=== PATIENT | female | born 1990 | race African-American/Black ===

== ENCOUNTER 2022-06-19 04:24 | Emergency (ER) | payer BC, MEDICAID ==
[~2022-06-19] VITALS: Ht 180.3 cm; Wt 128.6 kg
[2022-06-19 05:21] LABS: Basophils # (auto) 0 10 ^3/uL (0-0.2); Basophils % (auto) 0.6 % (0.0-2.0); Eosinophils # (auto) 0 10 ^3/uL (0-0.8); Hematocrit 39.7 % (36.0-46.0); Hemoglobin 13.2 g/dL (12.2-16.2); Lymphocytes # (auto) 1.7 10 ^3/uL (0.4-5.4); Lymphocytes % (auto) 47.2 % (10.0-50.0); Mean Corpuscular Hgb Conc. 33.4 g/dL (32.0-36.0); Mean Corpuscular Volume 89.9 fL (80.0-100.0); Monocytes # (auto) 0.2 10 ^3/uL (0-1.3); Monocytes % (auto) 6.4 % (0.0-12.0); Neutrophils # (auto) 1.6 10 ^3/uL (1.6-8.6); Neutrophils % (auto) 44.8 % (37.0-80.0); Nucleated Red Blood Cells % 0.1 %; Red Blood Cells 4.41 10^6/uL (4.0-5.20); Red Cell Distribution Width 13.2 % (11.8-14.3); White Blood Cell 3.6 10^3/uL (4.4-10.8)
[2022-06-19 05:34] LABS: Albumin 3.9 g/dL (3.4-5.0); BUN/Creatinine Ratio 22.6; Calcium 8.9 mg/dL (8.5-10.1)
[2022-06-19 05:48] LABS: Bilirubin, Total 0.8 mg/dL (0.2-1.0); Total Protein 7.3 g/dL (6.4-8.2)
[2022-06-19] MEDS ORDERED: ASPirin 81 mg TAB PO ONE (08:00)
[2022-06-19] MEDS ORDERED: SODIUM CHLORIDE 0.9% 1,000 ML IVB ONE (08:00)
[2022-06-19 13:00] VITALS: BP 121/68
== END 2022-06-19 13:08 | disposition home or self-care (01) ==
LOC: ER 04:24
DX: R07.89 Other chest pain (principal); K52.9 Noninfective gastroenteritis and colitis, unspecified; F17.290 Nicotine dependence, other tobacco product, uncomplicated; J45.909 Unspecified asthma, uncomplicated
CPT/HCPCS: 36415; 71045; 80053; 83880; 84484; 85025; 93005

== ENCOUNTER 2022-07-15 16:40 | Emergency (ER) | payer BC, MEDICAID ==
[~2022-07-15] VITALS: Ht 180.3 cm; Wt 113.6 kg
[2022-07-15 18:59] LABS: Basophils # (auto) 0 10 ^3/uL (0-0.2); Basophils % (auto) 0.6 % (0.0-2.0); Eosinophils # (auto) 0.1 10 ^3/uL (0-0.8); Eosinophils % (auto) 1.3 % (0.0-7.0); Hematocrit 42.5 % (36.0-46.0); Hemoglobin 13.8 g/dL (12.2-16.2); Lymphocytes # (auto) 2.2 10 ^3/uL (0.4-5.4); Lymphocytes % (auto) 53.3 % (10.0-50.0); Mean Corpuscular Hemoglobin 29.2 pg (28.0-32.0); Mean Corpuscular Hgb Conc. 32.4 g/dL (32.0-36.0); Mean Corpuscular Volume 90.3 fL (80.0-100.0); Monocytes # (auto) 0.2 10 ^3/uL (0-1.3); Monocytes % (auto) 4.7 % (0.0-12.0); Neutrophils # (auto) 1.7 10 ^3/uL (1.6-8.6); Neutrophils % (auto) 40.1 % (37.0-80.0); Nucleated Red Blood Cells % 0.3 %; Red Blood Cells 4.71 10^6/uL (4.0-5.20); Red Cell Distribution Width 13.3 % (11.8-14.3); White Blood Cell 4.2 10^3/uL (4.4-10.8)
[2022-07-15 19:18] LABS: Albumin 3.9 g/dL (3.4-5.0); BUN/Creatinine Ratio 24.7; Calcium 8.8 mg/dL (8.5-10.1); Potassium 4.2 mmol/L (3.5-5.1)
[2022-07-15 19:20] LABS: Bilirubin, Total 0.3 mg/dL (0.2-1.0); Total Protein 7.7 g/dL (6.4-8.2)
[2022-07-15] MEDS ORDERED: ONDANSETRON ODT 4 MG TAB PO ONE (22:45)
[2022-07-16] MEDS ORDERED: HYDROcodone-ACET 5/325MG TAB PO ONE
[2022-07-16 00:48] VITALS: BP 133/88
== END 2022-07-16 00:48 | disposition home or self-care (01) ==
LOC: EDBD 16:40 → ER 16:40 → EDUNIT# 16:40 → ER 07-16 00:48
DX: R07.89 Other chest pain (principal); Z88.0 Allergy status to penicillin; Z88.6 Allergy status to analgesic agent; Z91.041 Radiographic dye allergy status; J45.909 Unspecified asthma, uncomplicated
CPT/HCPCS: 36415; 80053; 84484; 85025; 93005; 99285; Q0162

== ENCOUNTER 2024-06-06 19:52 | Emergency (ER) | payer BC, MEDICAID ==
[~2024-06-06] VITALS: Ht 180.3 cm; Wt 127.3 kg
[2024-06-06] MEDS: ACETAMINOPHEN 500 MG TAB PO ONE (20:24)
[2024-06-06 20:26] LABS: Basophils # (auto) 0 10 ^3/uL (0-0.2); Basophils % (auto) 0.6 % (0.0-2.0); Eosinophils # (auto) 0 10 ^3/uL (0-0.8); Eosinophils % (auto) 0.5 % (0.0-7.0); Hematocrit 38.1 % (36.0-46.0); Hemoglobin 13.2 g/dL (12.2-16.2); Lymphocytes # (auto) 0.9 10 ^3/uL (0.4-5.4); Lymphocytes % (auto) 20.1 % (10.0-50.0); Mean Corpuscular Hemoglobin 31.2 pg (28.0-32.0); Mean Corpuscular Hgb Conc. 34.5 g/dL (32.0-36.0); Mean Corpuscular Volume 90.3 fL (80.0-100.0); Monocytes # (auto) 0.4 10 ^3/uL (0-1.3); Monocytes % (auto) 9.1 % (0.0-12.0); Neutrophils # (auto) 3.2 10 ^3/uL (1.6-8.6); Neutrophils % (auto) 69.7 % (37.0-80.0); Nucleated Red Blood Cells % 0.1 %; Platelet Count (auto) 218 10^3/uL (140-450); Red Blood Cells 4.22 10^6/uL (4.0-5.20); Red Cell Distribution Width 13.7 % (11.8-14.3); White Blood Cell 4.6 10^3/uL (4.4-10.8)
[2024-06-06 20:40] LABS: Alanine Aminotransferase 71 U/L (7-40); Albumin 4.3 g/dL (3.2-4.8); Alkaline Phosphatase 63 U/L (46-116); Anion Gap 7 (5-15); Aspartate Aminotransferase 55 U/L (13-40); BUN/Creatinine Ratio 17.8 (10.0-20.0); Bilirubin, Total 0.5 mg/dL (0.2-1.0); Blood Urea Nitrogen 16 mg/dL (9-23); Calcium 9.5 mg/dL (8.7-10.4); Carbon Dioxide 21 mmol/L (20-30); Chloride 109 mmol/L (98-107); Glucose 97 mg/dL (74-106); Potassium 4.3 mmol/L (3.5-5.1); Sodium 137 mmol/L (136-145); Total Protein 7.1 g/dL (5.7-8.2)
[2024-06-06 20:43] LABS: Rapid Strep A Screen-Throat Negative
[2024-06-06 20:47] LABS: INR 0.97 (0.9-1.15); Partial Thromboplastin Time 24.5 SEC (24.5-34.5); Prothrombin Time 10.3 sec (9.3-11.8)
[2024-06-06 20:57] LABS: COVID19 ANTIGEN SOFIA FIA NEGATIVE (NEGATIVE)
[2024-06-06 21:00] LABS: Rapid Influenza A Negative (Negative); Rapid Influenza B Negative (Negative)
[2024-06-06] MEDS ORDERED: PRED20TA2 PO (21:52)
[2024-06-06] MEDS ORDERED: AZIT500T66 PO (21:52)
[2024-06-06 22:36] LABS: Urine Bacteria FEW /hpf (None Seen); Urine Blood Negative /uL (Negative); Urine Clarity Ex.Turbid (Clear); Urine Color Light-Orange (Yellow); Urine Mucus FEW (None Seen); Urine Protein, UAD TRACE (Negative); Urine Specific Gravity 1.029 (1.001-1.035); Urine Urobilinogen Normal (Negative); Urine WBC 1 /hpf (0 - 5)
[2024-06-06] MEDS: ALBUTEROL SULF 2.5 MG/0.5ML(0.5%) NEB SOLN NEB ONE (23:46)
[2024-06-06] MEDS: IPRATROPIUM BROM 0.5 MG/2.5ML INH SOL NEB ONE (23:46)
[2024-06-06 23:57] VITALS: BP 120/73; PULSE 91; TEMP 98.5
[2024-06-07] VITALS: RESP 20; O2SAT 98
[2024-06-07] MEDS: DexAMETHasone SOD PHOS 10MG/1ML VIAL INJ IM ONE (00:05)
== END 2024-06-07 00:16 | disposition home or self-care (01) ==
LOC: ER 19:52
DX: J18.9 Pneumonia, unspecified organism (principal); J45.909 Unspecified asthma, uncomplicated; F12.90 Cannabis use, unspecified, uncomplicated; Z88.0 Allergy status to penicillin; Z88.6 Allergy status to analgesic agent; Z88.8 Allergy status to other drugs, medicaments and biological substances; Z20.822 Contact with and (suspected) exposure to COVID-19
CPT/HCPCS: 36415; 71045; 80053; 81001; 83880; 84484; 85025; 85610; 85730; 87070; 87426; 87804; 87880; 93005; 94640; 96372; 99285; J1100

== ENCOUNTER 2024-08-02 05:49 | Inpatient (IN) | payer MEDICAID ==
[~2024-08-02] VITALS: Ht 180.3 cm; Wt 143.5 kg
[~2024-08-02 05:49] MED LIST: AZIT500T66 PO; PRED20TA2 PO
[2024-08-02 06:21] LABS: Basophils # (auto) 0 10 ^3/uL (0-0.2); Basophils % (auto) 0.7 % (0.0-2.0); Eosinophils # (auto) 0.1 10 ^3/uL (0-0.8); Eosinophils % (auto) 1.4 % (0.0-7.0); Hemoglobin 13.4 g/dL (12.2-16.2); Lymphocytes # (auto) 2.1 10 ^3/uL (0.4-5.4); Lymphocytes % (auto) 32.1 % (10.0-50.0); Mean Corpuscular Hemoglobin 31.4 pg (28.0-32.0); Mean Corpuscular Hgb Conc. 34.3 g/dL (32.0-36.0); Mean Corpuscular Volume 91.6 fL (80.0-100.0); Monocytes # (auto) 0.4 10 ^3/uL (0-1.3); Monocytes % (auto) 5.9 % (0.0-12.0); Neutrophils # (auto) 3.9 10 ^3/uL (1.6-8.6); Neutrophils % (auto) 59.9 % (37.0-80.0); Platelet Count (auto) 235 10^3/uL (140-450); Red Blood Cells 4.25 10^6/uL (4.0-5.20); Red Cell Distribution Width 13.9 % (11.8-14.3); White Blood Cell 6.5 10^3/uL (4.4-10.8)
[2024-08-02 06:34] LABS: INR 0.97 (0.9-1.15); Partial Thromboplastin Time 24.7 SEC (24.5-34.5); Prothrombin Time 10.3 sec (9.3-11.8)
[2024-08-02 06:36] LABS: Alanine Aminotransferase 39 U/L (7-40); Albumin 4.4 g/dL (3.2-4.8); Alkaline Phosphatase 67 U/L (46-116); Anion Gap 4 (5-15); Aspartate Aminotransferase 23 U/L (13-40); BUN/Creatinine Ratio 15.2 (10.0-20.0); Blood Urea Nitrogen 12 mg/dL (9-23); Calcium 9.6 mg/dL (8.7-10.4); Carbon Dioxide 24 mmol/L (20-31); Chloride 111 mmol/L (98-107); Glucose 93 mg/dL (74-106); Magnesium 2.2 mg/dL (1.6-2.6); Potassium 4.1 mmol/L (3.5-5.1); Sodium 139 mmol/L (136-145)
[2024-08-02 06:37] LABS: Bilirubin, Total 0.5 mg/dL (0.2-1.0); Total Protein 7.3 g/dL (5.7-8.2)
[2024-08-02] MEDS: FAMOTIDINE (10MG/ML) 2ML VL IV ONE (07:28)
[2024-08-02] MEDS: SODIUM CHLORIDE 0.9% 1,000 ML IV ONE (07:28)
[2024-08-02] MEDS: ONDANSETRON HCL 4 MG/2 ML VIAL IV ONE (07:28)
[2024-08-02] MEDS: MORPHINE SULFATE 4 MG/ML SYR/VIAL IV ONE (07:33)
[2024-08-02 07:35] VITALS: PULSE 77; RESP 18; O2SAT 98
[2024-08-02] MEDS ORDERED: ACETAMINOPHEN 325 MG TAB PO PRN (10:45)
[2024-08-02 12:20] LABS: Erythrocyte Sedimentation Rate 23 mm/hr (0-20)
[2024-08-02] MEDS: HYDROcodone-ACET 5/325MG TAB PO PRN (16:49)
[2024-08-02] MEDS: HYDROmorphone HCL 2 MG/ML VL/or syr IV PRN (19:15)
[2024-08-02] MEDS ORDERED: MULT-1018 PO (21:49)
[2024-08-02] MEDS ORDERED: TOPI25TA84 PO (21:49)
[2024-08-02] MEDS ORDERED: ALBUAER3 IN (21:49)
[2024-08-02] MEDS ORDERED: LEVE500T40 PO (21:49)
[2024-08-02 23:15] VITALS: PULSE 80; RESP 16; O2SAT 96
[2024-08-03] MEDS: ONDANSETRON HCL 4 MG/2 ML VIAL IV PRN ×2 (00:26→18:23)
[2024-08-03 04:30] LABS: Alanine Aminotransferase 27 U/L (7-40); Albumin 4.2 g/dL (3.2-4.8); Alkaline Phosphatase 58 U/L (46-116); Anion Gap 5 (5-15); Aspartate Aminotransferase 14 U/L (13-40); BUN/Creatinine Ratio 12.7 (10.0-20.0); Bilirubin, Total 0.9 mg/dL (0.2-1.0); Blood Urea Nitrogen 8 mg/dL (9-23); Calcium 9.3 mg/dL (8.7-10.4); Carbon Dioxide 23 mmol/L (20-31); Chloride 111 mmol/L (98-107); Glucose 113 mg/dL (74-106); Potassium 3.9 mmol/L (3.5-5.1); Sodium 139 mmol/L (136-145); Total Protein 6.9 g/dL (5.7-8.2)
[2024-08-03 04:32] LABS: Basophils # (auto) 0 10 ^3/uL (0-0.2); Basophils % (auto) 0.3 % (0.0-2.0); Eosinophils # (auto) 0 10 ^3/uL (0-0.8); Eosinophils % (auto) 0.4 % (0.0-7.0); Hematocrit 38.9 % (36.0-46.0); Hemoglobin 13.2 g/dL (12.2-16.2); Lymphocytes # (auto) 1.6 10 ^3/uL (0.4-5.4); Lymphocytes % (auto) 29.6 % (10.0-50.0); Mean Corpuscular Hemoglobin 31.4 pg (28.0-32.0); Mean Corpuscular Volume 92.3 fL (80.0-100.0); Monocytes # (auto) 0.3 10 ^3/uL (0-1.3); Monocytes % (auto) 4.8 % (0.0-12.0); Neutrophils # (auto) 3.5 10 ^3/uL (1.6-8.6); Neutrophils % (auto) 64.9 % (37.0-80.0); Nucleated Red Blood Cells % 0.1 %; Platelet Count (auto) 203 10^3/uL (140-450); Red Blood Cells 4.22 10^6/uL (4.0-5.20); Red Cell Distribution Width 13.5 % (11.8-14.3); White Blood Cell 5.4 10^3/uL (4.4-10.8)
[2024-08-03 07:36] VITALS: PULSE 90; RESP 17
[2024-08-03] MEDS: ENOXAPARIN SOD 40 MG/0.4 ML SYRINGE SC SCH (09:56)
[2024-08-03 13:30] VITALS: O2SAT 97
[2024-08-03] MEDS: GABAPENTIN 100 MG CAP PO SCH (14:32)
[2024-08-03 14:36] LABS: Basophils # (auto) 0 10 ^3/uL (0-0.2); Basophils % (auto) 0.5 % (0.0-2.0); Eosinophils # (auto) 0.1 10 ^3/uL (0-0.8); Eosinophils % (auto) 1.3 % (0.0-7.0); Hematocrit 38.1 % (36.0-46.0); Lymphocytes # (auto) 2.1 10 ^3/uL (0.4-5.4); Mean Corpuscular Hemoglobin 31.4 pg (28.0-32.0); Mean Corpuscular Hgb Conc. 34.2 g/dL (32.0-36.0); Mean Corpuscular Volume 91.8 fL (80.0-100.0); Monocytes # (auto) 0.3 10 ^3/uL (0-1.3); Monocytes % (auto) 6.7 % (0.0-12.0); Neutrophils # (auto) 2.3 10 ^3/uL (1.6-8.6); Neutrophils % (auto) 48.5 % (37.0-80.0); Platelet Count (auto) 216 10^3/uL (140-450); Red Blood Cells 4.15 10^6/uL (4.0-5.20); Red Cell Distribution Width 13.6 % (11.8-14.3); White Blood Cell 4.8 10^3/uL (4.4-10.8)
[2024-08-03 14:57] LABS: Alanine Aminotransferase 28 U/L (7-40); Albumin 4.1 g/dL (3.2-4.8); Alkaline Phosphatase 60 U/L (46-116); Anion Gap 4 (5-15); Aspartate Aminotransferase 19 U/L (13-40); BUN/Creatinine Ratio 12.7 (10.0-20.0); Blood Urea Nitrogen 10 mg/dL (9-23); Calcium 9.2 mg/dL (8.7-10.4); Carbon Dioxide 27 mmol/L (20-31); Chloride 108 mmol/L (98-107); Creatine Kinase IFCC 161 U/L (34-145); Glucose 85 mg/dL (74-106); Potassium 3.6 mmol/L (3.5-5.1); Sodium 139 mmol/L (136-145)
[2024-08-03 14:58] LABS: Bilirubin, Total 0.8 mg/dL (0.2-1.0); Total Protein 6.7 g/dL (5.7-8.2)
[2024-08-03 21:49] VITALS: BP 138/86; PULSE 77; RESP 18; TEMP 98.4; O2SAT 98
[2024-08-03 22:12] LABS: Amphetamine Screen, Urine Neg (NEGATIVE); Barbiturate Scree,Urine Neg (NEGATIVE); Benzodiazephine Screen, Urine Neg (NEGATIVE); Cannabinoid Screen, Urine Pos (NEGATIVE); Cocaine Screen, Urine Neg (NEGATIVE); Opiate Scree,Urine Neg (NEGATIVE); Phencyclidine Screen, Urine Neg (NEGATIVE)
[2024-08-03] MEDS: TOPIRAMATE 25 MG TAB PO SCH (22:26)
[2024-08-03] MEDS: levETIRAcetam 500 MG TAB PO SCH (22:26)
[2024-08-04] VITALS (7 sets, daily range): BP systolic 112–142; BP diastolic 47–91; PULSE 64–96; RESP 15–18; TEMP 98–98.9; O2SAT 94–99
[2024-08-04] MEDS: DOCUSATE SOD 100 MG CAP PO PRN (05:11)
[2024-08-04 07:14] LABS: Basophils # (auto) 0 10 ^3/uL (0-0.2); Basophils % (auto) 0.6 % (0.0-2.0); Eosinophils # (auto) 0.1 10 ^3/uL (0-0.8); Hemoglobin 13.6 g/dL (12.2-16.2); Lymphocytes # (auto) 1.4 10 ^3/uL (0.4-5.4); Lymphocytes % (auto) 33.2 % (10.0-50.0); Mean Corpuscular Hemoglobin 31.1 pg (28.0-32.0); Mean Corpuscular Volume 91.6 fL (80.0-100.0); Monocytes # (auto) 0.3 10 ^3/uL (0-1.3); Monocytes % (auto) 6.6 % (0.0-12.0); Neutrophils # (auto) 2.3 10 ^3/uL (1.6-8.6); Neutrophils % (auto) 57.6 % (37.0-80.0); Nucleated Red Blood Cells % 0.1 %; Platelet Count (auto) 242 10^3/uL (140-450); Red Blood Cells 4.36 10^6/uL (4.0-5.20); Red Cell Distribution Width 13.1 % (11.8-14.3); White Blood Cell 4.1 10^3/uL (4.4-10.8)
[2024-08-04 07:38] LABS: Alanine Aminotransferase 28 U/L (7-40); Albumin 4.2 g/dL (3.2-4.8); Alkaline Phosphatase 58 U/L (46-116); Anion Gap 7 (5-15); Aspartate Aminotransferase 20 U/L (13-40); BUN/Creatinine Ratio 10.8 (10.0-20.0); Blood Urea Nitrogen 9 mg/dL (9-23); Calcium 9.6 mg/dL (8.7-10.4); Carbon Dioxide 25 mmol/L (20-31); Chloride 108 mmol/L (98-107); Glucose 71 mg/dL (74-106); Potassium 3.8 mmol/L (3.5-5.1); Sodium 140 mmol/L (136-145)
[2024-08-04 07:39] LABS: Bilirubin, Total 0.9 mg/dL (0.2-1.0); Total Protein 7.2 g/dL (5.7-8.2)
[2024-08-04] MEDS: MECLIZINE HCL 25 MG TAB PO PRN (16:52)
[2024-08-05] VITALS (8 sets, daily range): BP systolic 112–123; BP diastolic 36–77; PULSE 61–96; RESP 16–20; TEMP 97.8–98.4; O2SAT 94–100
[2024-08-05 08:13] LABS: Basophils # (auto) 0 10 ^3/uL (0-0.2); Basophils % (auto) 0.5 % (0.0-2.0); Eosinophils # (auto) 0.1 10 ^3/uL (0-0.8); Eosinophils % (auto) 1.9 % (0.0-7.0); Hematocrit 42.5 % (36.0-46.0); Hemoglobin 14.3 g/dL (12.2-16.2); Lymphocytes # (auto) 1.5 10 ^3/uL (0.4-5.4); Lymphocytes % (auto) 39.5 % (10.0-50.0); Mean Corpuscular Hemoglobin 30.7 pg (28.0-32.0); Mean Corpuscular Hgb Conc. 33.6 g/dL (32.0-36.0); Mean Corpuscular Volume 91.5 fL (80.0-100.0); Monocytes # (auto) 0.2 10 ^3/uL (0-1.3); Monocytes % (auto) 4.5 % (0.0-12.0); Neutrophils # (auto) 2.1 10 ^3/uL (1.6-8.6); Neutrophils % (auto) 53.6 % (37.0-80.0); Nucleated Red Blood Cells % 0.1 %; Platelet Count (auto) 279 10^3/uL (140-450); Red Blood Cells 4.64 10^6/uL (4.0-5.20); Red Cell Distribution Width 12.9 % (11.8-14.3); White Blood Cell 3.8 10^3/uL (4.4-10.8)
[2024-08-05 08:40] LABS: Alanine Aminotransferase 25 U/L (7-40); Albumin 4.3 g/dL (3.2-4.8); Alkaline Phosphatase 59 U/L (46-116); Anion Gap 8 (5-15); Aspartate Aminotransferase 22 U/L (13-40); BUN/Creatinine Ratio 11.1 (10.0-20.0); Bilirubin, Total 0.8 mg/dL (0.2-1.0); Blood Urea Nitrogen 10 mg/dL (9-23); Calcium 9.7 mg/dL (8.7-10.4); Carbon Dioxide 24 mmol/L (20-31); Chloride 108 mmol/L (98-107); Glucose 92 mg/dL (74-106); Potassium 3.5 mmol/L (3.5-5.1); Sodium 140 mmol/L (136-145); Total Protein 7.4 g/dL (5.7-8.2)
[2024-08-05] MEDS: MAALOX PLUS or MAALOX 30 ML PO ONE (10:43)
[2024-08-05] MEDS: ONDANSETRON HCL 4 MG/2 ML VIAL IV ONE (10:44)
[2024-08-05] MEDS: FAMOTIDINE (10MG/ML) 2ML VL IV ONE (10:45)
[2024-08-05] MEDS: HALOPERIDOL LACTATE 5 MG/ML INJ VIAL IM ONE (14:47)
[2024-08-05] MEDS: MAALOX PLUS or MAALOX 30 ML PO PRN (21:40)
[2024-08-06 01:00] VITALS: BP 131/87; PULSE 82; RESP 17; TEMP 98; O2SAT 99
[2024-08-06 05:00] VITALS: BP 102/60; PULSE 92; RESP 18; TEMP 97.8; O2SAT 96
[2024-08-06 06:08] LABS: Basophils # (auto) 0 10 ^3/uL (0-0.2); Basophils % (auto) 0.7 % (0.0-2.0); Eosinophils # (auto) 0.1 10 ^3/uL (0-0.8); Eosinophils % (auto) 1.8 % (0.0-7.0); Hematocrit 40.7 % (36.0-46.0); Lymphocytes # (auto) 1.6 10 ^3/uL (0.4-5.4); Lymphocytes % (auto) 35.4 % (10.0-50.0); Mean Corpuscular Hemoglobin 31.3 pg (28.0-32.0); Mean Corpuscular Hgb Conc. 34.5 g/dL (32.0-36.0); Mean Corpuscular Volume 90.7 fL (80.0-100.0); Monocytes # (auto) 0.4 10 ^3/uL (0-1.3); Monocytes % (auto) 8.2 % (0.0-12.0); Neutrophils # (auto) 2.4 10 ^3/uL (1.6-8.6); Neutrophils % (auto) 53.9 % (37.0-80.0); Nucleated Red Blood Cells % 0.2 %; Platelet Count (auto) 278 10^3/uL (140-450); Red Blood Cells 4.48 10^6/uL (4.0-5.20); White Blood Cell 4.4 10^3/uL (4.4-10.8)
[2024-08-06 06:31] LABS: Alanine Aminotransferase 22 U/L (7-40); Albumin 4.2 g/dL (3.2-4.8); Alkaline Phosphatase 58 U/L (46-116); Anion Gap 6 (5-15); Aspartate Aminotransferase 18 U/L (13-40); Blood Urea Nitrogen 9 mg/dL (9-23); Calcium 9.6 mg/dL (8.7-10.4); Carbon Dioxide 23 mmol/L (20-31); Chloride 110 mmol/L (98-107); Glucose 83 mg/dL (74-106); Potassium 4.1 mmol/L (3.5-5.1); Sodium 139 mmol/L (136-145)
[2024-08-06 06:32] LABS: Bilirubin, Total 0.8 mg/dL (0.2-1.0); Total Protein 7.2 g/dL (5.7-8.2)
[2024-08-06 08:00] VITALS: PULSE 64; RESP 18; O2SAT 96
[2024-08-06 09:00] VITALS: BP 118/60; PULSE 64; RESP 18; TEMP 98.2; O2SAT 96
[2024-08-06] MEDS ORDERED: ZOFR4T PO (09:19)
[2024-08-06] MEDS ORDERED: FAMO-161 PO (09:19)
[2024-08-06] MEDS ORDERED: GABA-1308 PO (09:19)
[2024-08-06] MEDS ORDERED: MECL25CH85 PO (09:19)
[2024-08-06] MEDS: ONDANSETRON HCL 4 MG/2 ML VIAL IM ONE (09:35)
[2024-08-06 10:46] VITALS: BP 118/60; PULSE 64; RESP 18; TEMP 98.2; O2SAT 96
== END 2024-08-06 11:35 | disposition home or self-care (01) | DRG 50 ==
LOC: ER 05:49 → OVERFLOW 10:44 → WEST WING 10:49
PROVIDERS: ADMIT Internal Medicine; ATTEND Student in an Organized Health Care Education/Training Program
DX: B02.29 Other postherpetic nervous system involvement (principal); R56.9 Unspecified convulsions; E28.2 Polycystic ovarian syndrome; J45.909 Unspecified asthma, uncomplicated; E66.01 Morbid (severe) obesity due to excess calories; Z88.0 Allergy status to penicillin; Z88.8 Allergy status to other drugs, medicaments and biological substances; Z88.6 Allergy status to analgesic agent; Z91.041 Radiographic dye allergy status; Z68.41 Body mass index [BMI] 40.0-44.9, adult; H81.12 Benign paroxysmal vertigo, left ear
CPT/HCPCS: 36415; 71045; 71046; 74176; 76705; 80053; 80307; 82550; 83605; 83735; 83880; 84484; 85025; 85610; 85652; 85730; 86141; 93005; 93971; 96361; 96374; 96375; 99291; G0378; J2405; J3490

== ENCOUNTER 2024-09-29 06:20 | Emergency (ER) | payer MEDICAID ==
[~2024-09-29] VITALS: Ht 180.3 cm; Wt 132.0 kg
[~2024-09-29 06:20] MED LIST changes: +ALBUAER3 IN; -AZIT500T66 PO; +FAMO-161 PO; +GABA-1308 PO; +LEVE500T40 PO; +MECL25CH85 PO; +MULT-1018 PO; -PRED20TA2 PO; +TOPI25TA84 PO; +ZOFR4T PO
[2024-09-29 08:03] VITALS: BP 130/93; PULSE 127; RESP 19; TEMP 98.1; O2SAT 99
--- NOTE | 2024-09-29 08:17 | ED.PDOC ---
Eye-HPI HPI Comments A 33 YEAR OLD FEMALE PRESENTS TO THE ED WITH COMPLAINT OF FLU-LIKE SYMPTOMS. PATIENT STATES SHE HAS BEEN EXPERIENCING A SORE THROAT, LEFT EAR PAIN, BODY ACHES, AND OCCASIONAL FEVER FOR THE PAST 5 DAYS. PATIENT REPORTS SHE HAS TRIED TAKING TYLENOL FOR HER SYMPTOMS WITH MINIMAL IMPROVEMENT. PATIENT DENIES SHORTNESS OF BREATH, CHEST PAIN, ABDOMINAL PAIN, NAUSEA, VOMITING, HEADACHE, OR OTHER COMPLAINTS. NO OTHER SYMPTOMS OR MODIFYING FACTORS AT THIS TIME. PATIENT IS ALERT, ORIENTED X 4, AND HAS STEADY GAIT. Chief Complaint: Flu like Time Seen by MD: 07:29 Primary Care Provider: UNKNOWN Reviewed Notes: Nurses Notes, Medications, Allergies Allergies: Coded Allergies: Ibuprofen (Verified Allergy, Severe, 07/15/22) Iodine (Verified Allergy, Severe, 07/15/22) Penicillins (Verified Allergy, Severe, 07/15/22) Aspirin (Verified Allergy, Unknown, 07/15/22) Uncoded Allergies: oranges (Allergy, Unknown, 08/04/24) Home Meds Active Scripts Acetaminophen (Tylenol Extra Strength Fo) 500 Mg Tab, 650 MG PO TID, #30 TAB Prov:ANNA AGUILAR 09/29/24 Azithromycin (Azithromycin) 500 Mg Tab, 1 TAB PO DAILY, #5 TAB Prov:ANNA AGUILAR 09/29/24 Gabapentin (Gabapentin) 100 Mg Cap, 1 CAP PO TID for 30 Days, #90 CAP 2 Refills Prov:GEORGES DON MD 08/06/24 Meclizine HCl (Antivert) 25 Mg Chw, 25 MG PO DAILY PRN for 30 Days, #30 TAB.CHEW Prov:GEORGES DON MD 08/06/24 Ondansetron Odt 4MG Tab (ZOFRAN PO) 4 Mg Tb, 4 MG PO BIDPRN PRN for 30 Days, #60 TAB ODT TAB-DISSOLVE IN MOUTH, THEN SWALLOW Prov:GEORGES DON MD 08/06/24 Famotidine (Pepcid AC) 20 Mg Tab, 20 MG PO DAILY PRN for 30 Days, #30 TAB Prov:GEORGES DON MD 08/06/24 Reported Medications Topiramate (Topiramate) 25 Mg Tab, 1 TAB PO BID, #60 TAB 08/02/24 Levetiracetam (Keppra) 500 Mg Tab, 1 TAB PO BID, #180 TAB 3 Refills 08/02/24 Multiple Vitamin (Multivitamins) Tab, 1 TAB PO DAILY, #90 TAB 3 Refills 08/02/24 Albuterol Sulfate (VENTOLIN MDI) 90 Mcg Ih, 90 MCG IN, INH 08/02/24 Information Source: Patient Mode of Arrival: Ambulatory Timing: Days Duration: Since onset, Days Prehospital treatment: None Quality: Pain, Red Lids: Normal Conjunctiva: Normal Cornea: Normal Pupils: Normal EOM: Normal Fundus: Normal Slit lamp exam: Normal Anterior chamber: Normal Mouth Location: Pharynx Mouth: Normal ENT Ear Exam: Normal, Red, Bulging, Normal Nose: Normal Sinuses: Normal Oropharynx: Tonsillar hypertrophy, Red Onset: Spontaneous Throat Exposed to: None History of: None Last Tetanus: Unknown Modifying factors: Nothing Associated signs and symptoms: Fever, Nasal Symptoms, Sore Throat, Ear Pain Past Medical History PAST MEDICAL HISTORY: Anemia, Asthma, Seizures Surgical History: Denies all surgeries LICENSED ELECTRICIAN History: No Pertinent LICENSED ELECTRICIAN History, Ovarian Cysts Family History Family History: Reviewed,noncontributory to illness Social History Smoker: Non-Smoker, Other Alcohol: Denies ETOH Use Drugs: Marijuana Lives In: Home Constitutional: reports: fever; denies: chills, diaphoresis, fatigue, malaise, sweats, weakness, others EENTM: reports: nose congestion, throat pain, throat swelling; denies: blurred vision, double vision, ear bleeding, ear discharge, ear drainage, ear pain, ear ringing, eye pain, eye redness, hearing loss, mouth pain, mouth swelling, nasal discharge, nose bleeding, nose pain, photophobia, tearing, voice changes, others Respiratory: reports: cough; denies: hemoptysis, orthopnea, SOB at rest, shortness of breath, SOB with excertion, stridor, wheezing, others Cardiovascular: denies: chest pain, dizzy spells, diaphoresis, Dyspnea on exertion, edema, irregular heart beat, left arm pain, lightheadedness, palpitations, PND, syncope, others Gastrointestinal: denies: abdomen distended, abdominal pain, blood streaked bowels, constipated, diarrhea, dysphagia, difficulty swallowing, hematemesis, melena, nausea, poor appetite, poor fluid intake, rectal bleeding, rectal pain, vomiting, others Genitourinary: denies: abnormal vagina bleeding, burning, dyspareunia, dysuria, flank pain, frequency, hematuria, incontinence, pain, , vagina discharge, urgency, others Neurological: denies: dizziness, fainting, headache, left sided numbness, left sided weakness, numbness, paresthesia, pre-existing deficit, right sided numbness, right sided weakness, seizure, speech problems, tingling, tremors, weakness, others Musculoskeletal: reports: muscle pain; denies: back pain, gout, joint pain, j oint swelling, muscle stiffness, neck pain, others Integumetry: denies: bruises, change in color, change in hair/nails, dryness, laceration, lesions, lumps, rash, wounds, others Allergic/Immunocompromised: denies: Difficulty Healing, Frequent Infections, Hives, Itching, others Hematologic/Lymphatic: denies: anemia, blood clots, easy bleeding, easy bruising, swollen glands, others Endocrine: denies: excessive hunger, excessive sweating, excessive thirst, excessive urination, flushing, intolerance to cold, intolerance to heat, unexplained weight gain, unexplained weight loss, others Psychiatric: denies: anxiety, bipolar disorder, depression, hopeless, panic disorder, schizophrenia, sleepless, suicidal, others All Other Systems: Reviewed and Negative Physical Exam General Appearance: No Apparent Distress, Obese HEENT: PERRL/EOMI, Pharyngeal Erythema (TONSILLAR SWELLING, NO EXUDATES. ), TM Abnormal (L) (ERYTHEMA AND DULL WITH EFFUSION OF LEFT TM. ) Neck: Full Range of Motion, Non-Tender, Normal, Normal Inspection Respiratory: Chest Non-Tender, Lungs Clear, No Accessory Muscle Use, No Respiratory Distress, Normal Breath Sounds Cardiovascular: No Edema, No JVD, No Murmur, No Gallop, Normal Peripheral Pulses, Regular Rate/Rhythm Breast Exam: Deferred Gastrointestinal: No Organomegaly, Non Tender, No Pulsatile Mass, Normal Bowel Sounds, Soft Genitalia: Deferred Pelvic: Deferred Rectal: Deferred Extremities: No calf tenderness, Normal capillary refill, Normal inspection, Normal range of motion, Non-tender, No pedal edema Musculoskeletal : Apperance: Normal Neurologic: Alert, small parts assembler II-XII nml as Tested, No Motor Deficits, Normal Affect, Normal Mood, No Sensory Deficits Cerebellar Function: Normal Reflexes: Normal Skin: Dry, Normal Color, Warm Peripheral Pulses: 2+ carotid (R), 2+ carotid (L) Lymphatic: No Adenopathy Was a procedure done? Was a procedure done?: No EENT DIFF Eye: N/A Ear: Otitis Media, Pharyngitis, Sinusitis Nose: N/A Mouth: N/A Sore Throat: Pharyngitis, Streptococcal, Viral Pharyngitis, URI X-Ray, Labs, Meds, VS Vital Signs Date Time Temp Pulse Resp B/P (MAP) Pulse Ox O2 Delivery O2 Flow Rate FiO2 09/29/24 08:03 98.1 127 19 130/93 (105) 99 98.1 09/29/24 08:03 127 19 99 Room Air 09/29/24 07:28 98.1 127 19 130/93 (105) 99 Current Medications Medications (Trade) Dose Ordered Sig/Louise Route Start Time Stop Time Status Last Admin Ceftriaxone Sodium (Rocephin) 1,000 mg ONCE ONCE IM 09/29/24 08:15 09/29/24 08:16 DC 09/29/24 08:20 Acetaminophen (Tylenol Tablet Or Capsule) 1,000 mg ONCE ONCE PO 09/29/24 08:15 09/29/24 08:16 DC 09/29/24 08:19 CHEST RADIOGRAPH Indication: COUGH AND FLU Technique: Single frontal view of the chest was obtained COMPARISON: XY CHEST PORTABLE on DOS: 08/02/24, XY CHEST PORTABLE on DOS: 06/06/24, CHEST PORTABLE on DOS: 06/19/22, CXRP on DOS: 06/19/22 FINDINGS: Lines and Tubes: None Lungs: Clear Pleura: No effusion. No pneumothorax. Cardiomediastinal contours: Unremarkable Bones: Unremarkable IMPRESSION: 1. Normal chest X-ray : No lung, pleural, cardiomediastinal or bone abnormalities detected. ATED BY: MIGUEL BEAULIEU MD DICTATED DATE/TIME: 09/29/24817 SIGNED BY: MIGUEL BEAULIEU MD SIGNED DATE/TIME: 09/29/24817 CC: X-Ray, Labs, Meds, VS Comment EXTERNAL MEDICAL RECORDS REVIEWED: [NONE] INDEPENDENT HISTORIANS: [NONE] SOCIAL DETERMINANTS OF HEALTH: [NONE] LABS ORDERED: NONE REVIEWED AND INTERPRETED RESULTS: NONE IMAGING ORDERED: XR CHEST TREATMENTS ORDERED: ROCEPHIN 1 G IM, TYLENOL 1 G P.O. PROCEDURES PERFORMED: NONE CRITICAL CARE TIME: NONE I HAVE DISCUSSED THE PATIENT WITH THE ATTENDING PHYSICIAN DR. CORNELIUS AND HE AGREES WITH THE PATIENT'S PLAN OF CARE AND DISPOSITION. BASED ON HISTORY OF PRESENT ILLNESS, AND PHYSICAL EXAM, PATIENT WILL BE DISCHARGED HOME. DISCUSSED PLAN FOR DISCHARGE HOME WITH RX [AZITHROMYCIN AND TYLENOL]. MEDICATION WARNINGS GIVEN. SHARED DECISION MAKING: PATIENT INSTRUCTED TO FOLLOW UP WITH PRIMARY CARE PROVIDER IN 1-2 DAYS FOR RE-EVALUATION OF SYMPTOMS. PATIENT VERBALIZES UNDERSTANDING TO RETURN TO ED FOR NEW OR WORSENING SYMPTOMS OR IF FOLLOW UP WITH PCP CANNOT BE OBTAINED. PATIENT FEELS COMFORTABLE GOING HOME AT THIS TIME. ALL QUESTIONS ADDRESSED AT TIME OF DISCHARGE. Images Reviewed?: Images reviewed and evaluated by me Time of 1ST Reevaluation: 08:40 Reevaluation 1ST: Improved Patient Education/Counseling: Diagnosis, Treatment, Need For Follow Up Family Education/Counseling: Diagnosis, Treatment, Need For Follow Up Medical Screening: No EMC Exist At This Time Departure 1 Departure Time of Disposition: 08:40 Impression: Primary Impression: Acute tonsillitis Qualified Codes: J03.90 - Acute tonsillitis, unspecified Additional Impression: Otitis media of left ear Qualified Codes: H65.192 - Other acute nonsuppurative otitis media, left ear Disposition: 01 HOME / SELF CARE / HOMELESS Condition: Stable Additional Instructions: FOLLOW-UP WITH PCP IN 1 TO 2 DAYS. TAKE MEDICATIONS PRESCRIBED. RETURN TO ED FOR ANY NEW OR WORSENING SYMPTOMS. e-Prescriptions Acetaminophen (Tylenol Extra Strength Fo) 500 Mg Tab 650 MG PO TID, #30 TAB Prov: ANNA AGUILAR 09/29/24 Azithromycin (Azithromycin) 500 Mg Tab 1 TAB PO DAILY, #5 TAB Prov: ANNA AGUILAR 09/29/24 Discharged With: Self Critical Care Note Critical Care Time?: No Stability Stability form required: No I personally scribed for ANNA AGUILAR ([email or web address]) on 09/29/24 at 08:16. Electronically submitted by Natan Garcia ([email or web address]). I personally scribed for ANNA AGUILAR ([email or web address]) on 09/29/24 at 08:21. Electronically submitted by Natan Garcia ([email or web address]). I personally scribed for ANNA AGUILAR ([email or web address]) on 09/29/24 at 08:23. Electronically submitted by Natan Garcia ([email or web address]). ANNA AGUILAR Sep 29, 2024 08:16
[2024-09-29] MEDS: ACETAMINOPHEN 500 MG TAB or CAP PO ONE (08:19)
[2024-09-29] MEDS: cefTRIAXone SOD 1,000 MG VL IM ONE (08:20)
--- NOTE | 2024-09-29 08:20 | DVH ---
CHEST RADIOGRAPH Indication: COUGH AND FLU Technique: Single frontal view of the chest was obtained COMPARISON: XY CHEST PORTABLE on DOS: 08/02/24, XY CHEST PORTABLE on DOS: 06/06/24, CHEST PORTABLE on DOS: 06/19/22, CXRP on DOS: 06/19/22 FINDINGS: Lines and Tubes: None Lungs: Clear Pleura: No effusion. No pneumothorax. Cardiomediastinal contours: Unremarkable Bones: Unremarkable IMPRESSION: 1. Normal chest X-ray : No lung, pleural, cardiomediastinal or bone abnormalities detected.
[2024-09-29] MEDS ORDERED: ACET-1304 PO (08:33)
[2024-09-29] MEDS ORDERED: AZIT500T66 PO (08:33)
== END 2024-09-29 08:38 | disposition home or self-care (01) ==
LOC: ER 06:20
DX: J03.90 Acute tonsillitis, unspecified (principal); H66.92 Otitis media, unspecified, left ear; J45.909 Unspecified asthma, uncomplicated; F15.90 Other stimulant use, unspecified, uncomplicated; Z86.2 Personal history of diseases of the blood and blood-forming organs and certain disorders involving the immune mechanism; Z87.891 Personal history of nicotine dependence; Z91.041 Radiographic dye allergy status; Z88.0 Allergy status to penicillin; Z88.6 Allergy status to analgesic agent; Z88.8 Allergy status to other drugs, medicaments and biological substances; Z79.899 Other long term (current) drug therapy
CPT/HCPCS: 71045; 96372; 99283; J0696

== ENCOUNTER 2025-02-08 12:26 | Emergency (ER) | payer MEDICAID ==
[~2025-02-08] VITALS: Ht 180.3 cm; Wt 129.4 kg
[~2025-02-08 12:26] MED LIST changes: +ACET-1304 PO; +AZIT500T66 PO
[2025-02-08 13:28] VITALS: BP 155/74; PULSE 103; RESP 17; TEMP 98.9; O2SAT 100
[2025-02-08] MEDS: ONDANSETRON ODT 4 MG TAB PO ONE (14:00)
[2025-02-08 14:23] LABS: Basophils # (auto) 0 10 ^3/uL (0-0.2); Basophils % (auto) 0.5 % (0.0-2.0); Eosinophils # (auto) 0 10 ^3/uL (0-0.8); Eosinophils % (auto) 0.7 % (0.0-7.0); Hematocrit 42.7 % (36.0-46.0); Hemoglobin 14.3 g/dL (12.2-16.2); Lymphocytes # (auto) 2.2 10 ^3/uL (0.4-5.4); Lymphocytes % (auto) 49.1 % (10.0-50.0); Mean Corpuscular Hemoglobin 30.3 pg (28.0-32.0); Mean Corpuscular Hgb Conc. 33.5 g/dL (32.0-36.0); Mean Corpuscular Volume 90.4 fL (80.0-100.0); Monocytes # (auto) 0.3 10 ^3/uL (0-1.3); Neutrophils # (auto) 1.9 10 ^3/uL (1.6-8.6); Neutrophils % (auto) 43.7 % (37.0-80.0); Nucleated Red Blood Cells % 0.3 %; Platelet Count (auto) 233 10^3/uL (140-450); Red Blood Cells 4.73 10^6/uL (4.0-5.20); Red Cell Distribution Width 13.5 % (11.8-14.3); White Blood Cell 4.4 10^3/uL (4.4-10.8)
[2025-02-08 14:32] LABS: Sodium 143 mmol/L (136-145)
[2025-02-08 14:33] LABS: Anion Gap 6 (5-15); Carbon Dioxide 26 mmol/L (20-31)
[2025-02-08 14:34] LABS: Calcium 9.1 mg/dL (8.7-10.4)
[2025-02-08 14:35] LABS: Chloride 111 mmol/L (98-107); Potassium 3.3 mmol/L (3.5-5.1)
[2025-02-08 14:38] LABS: BUN/Creatinine Ratio 19.6 (10.0-20.0); Blood Urea Nitrogen 18 mg/dL (9-23); Glucose 98 mg/dL (74-106)
--- NOTE | 2025-02-08 15:01 | DVH ---
XY CHEST TWO VIEWS ROUTINE CLINICAL HISTORY: Cough, fevers, r/o pna and tb COMPARISON: XY CHEST TWO VIEWS ROUTINE on DOS: 08/02/24 TECHNIQUE: Frontal and lateral view of the chest was obtained FINDINGS: Lines and Tubes: None Lungs: No focal consolidation. Pleura: No effusion. No pneumothorax. Cardiomediastinal contours: Unremarkable Bones: No acute osseous abnormality. IMPRESSION: No acute cardiopulmonary disease.
[2025-02-08 15:18] LABS: COVID19 ANTIGEN SOFIA FIA NEGATIVE (NEGATIVE); Rapid Influenza A Negative (Negative); Rapid Influenza B Negative (Negative)
[2025-02-08 15:57] LABS: Urine Amorphous Crystal MOD /hpf (None Seen); Urine Bacteria MOD /hpf (None Seen); Urine Blood Negative /uL (Negative); Urine Clarity Ex.Turbid (Clear); Urine Color Light-Orange (Yellow); Urine Mucus FEW (None Seen); Urine Protein, UAD 1+ (Negative); Urine Specific Gravity 1.032 (1.001-1.035); Urine Squamous Epithelial Cell None Seen /hpf (<5); Urine Urobilinogen Normal (Negative); Urine pH 5.5 (5.0-9.0)
[2025-02-08] MEDS ORDERED: ONDA-155 PO (16:05)
--- NOTE | 2025-02-08 16:05 | ED.PDOC ---
SOB-HPI HPI Comments URI Chief Complaint: Flu like Time Seen by MD: 12:29 Primary Care Provider: GORGE HART Mode of Arrival: Ambulatory Past Medical History PAST MEDICAL HISTORY: Anemia, Asthma, Seizures Surgical History: Denies all surgeries ELEVATOR SERVICEMAN History: No Pertinent ELEVATOR SERVICEMAN History, Ovarian Cysts Family History Family History: Reviewed,noncontributory to illness Social History Smoker: Non-Smoker, Other Alcohol: Denies ETOH Use Drugs: Marijuana Lives In: Home X-Ray, Labs, Meds, VS Vital Signs Date Time Temp Pulse Resp B/P (MAP) Pulse Ox O2 Delivery O2 Flow Rate FiO2 02/08/25 13:28 98.9 103 17 155/74 (101) 100 98.9 02/08/25 13:28 103 17 100 Room Air 02/08/25 12:40 98.9 103 16 155/74 (101) 100 98.9 Lab Test 02/08/25 14:41 02/08/25 14:08 02/08/25 14:04 Range/Units Influenza Type A Antigen Negative Negative Influenza Type B Antigen Negative Negative SARS-CoV-2 Antigen (Rapid) Negative NEGATIVE White Blood Count 4.4 4.4-10.8 10^3/uL Red Blood Count 4.73 4.0-5.20 10^6/uL Hemoglobin 14.3 12.2-16.2 g/dL Hematocrit 42.7 36.0-46.0 % Mean Corpuscular Volume 90.4 80.0-100.0 fL Mean Corpuscular Hemoglobin 30.3 28.0-32.0 pg Mean Corpuscular Hemoglobin Concent 33.5 32.0-36.0 g/dL Red Cell Distribution Width 13.5 11.8-14.3 % Platelet Count 233 140-450 10^3/uL Mean Platelet Volume 7.3 6.9-10.8 fL Neutrophils (%) (Auto) 43.7 37.0-80.0 % Lymphocytes (%) (Auto) 49.1 10.0-50.0 % Monocytes (%) (Auto) 6.0 0.0-12.0 % Eosinophils (%) (Auto) 0.7 0.0-7.0 % Basophils (%) (Auto) 0.5 0.0-2.0 % Neutrophils # (Auto) 1.9 1.6-8.6 10 ^3/uL Lymphocytes # (Auto) 2.2 0.4-5.4 10 ^3/uL Monocytes # (Auto) 0.3 0-1.3 10 ^3/uL Eosinophils # (Auto) 0 0-0.8 10 ^3/uL Basophils # (Auto) 0 0-0.2 10 ^3/uL Nucleated Red Blood Cells 0.3 % Sodium Level 143 136-145 mmol/L Potassium Level 3.3 L 3.5-5.1 mmol/L Chloride Level 111 H 98-107 mmol/L Carbon Dioxide Level 26 20-31 mmol/L Anion Gap 6 5-15 Blood Urea Nitrogen 18 9-23 mg/dL Creatinine 0.92 0.550-1.02 mg/dL Glomerular Filtration Rate Calc 84 >90 mL/min BUN/Creatinine Ratio 19.6 10.0-20.0 Serum Glucose 98 74-106 mg/dL Calcium Level 9.1 8.7-10.4 mg/dL Urine Color Light-orange Yellow Urine Clarity Ex.turbid Clear Urine pH 5.5 5.0-9.0 Urine Specific [place] 1.032 1.001-1.035 Urine Protein 1+ H Negative Urine Ketones 1+ H Negative Urine Blood Negative Negative /uL Urine Nitrite Negative Negative Urine Bilirubin Negative Negative Urine Urobilinogen Normal Negative mg/dL Urine Leukocyte Esterase Negative Negative /uL Urine RBC 2 0 - 4 /hpf Urine Microscopic WBC 0-5 /HPF Urine Squamous Epithelial Cells None seen <5 /hpf Urine Amorphous Crystals Mod None Seen /hpf Urine Bacteria Mod H None Seen /hpf Urine Mucus Few None Seen Urine Glucose Normal Normal mg/dL Urine Test Negative Negative Current Medications Medications (Trade) Dose Ordered Sig/Louise Route Start Time Stop Time Status Last Admin Ondansetron HCl (Zofran Po) 4 mg ONCE ONCE PO 02/08/25 14:00 02/08/25 14:01 DC 02/08/25 14:00 Departure 1 Departure Time of Disposition: 16:04 Impression: Primary Impression: Viral syndrome Disposition: 01 HOME / SELF CARE / HOMELESS Condition: Stable e-Prescriptions Ondansetron HCl (Ondansetron) 4 Mg Tab 4 MG PO Q8HP PRN for 2 Days, #6 TAB 0 Refills Prov: CARTER MANSFIELD NP 02/08/25 Discharged With: Self CARTER MANSFIELD NP Feb 08, 2025 16:05
== END 2025-02-08 16:05 | disposition home or self-care (01) ==
LOC: ER 12:26
DX: B34.9 Viral infection, unspecified (principal); F12.90 Cannabis use, unspecified, uncomplicated; J45.909 Unspecified asthma, uncomplicated; Z20.822 Contact with and (suspected) exposure to COVID-19; Z86.69 Personal history of other diseases of the nervous system and sense organs
CPT/HCPCS: 36415; 71046; 80048; 81001; 81025; 85025; 87426; 87804; 99284; Q0162

== ENCOUNTER 2025-05-03 06:45 | Inpatient (IN) | payer MEDICAID ==
[~2025-05-03] VITALS: Ht 180.3 cm; Wt 146.6 kg
[~2025-05-03 06:45] MED LIST changes: +ONDA-155 PO
--- NOTE | 2025-05-03 07:31 | ED.PDOC ---
GI ASSESSMENT HPI Comments Patient is a 34-year-old female with a medical history of asthma, seizures, PCOS presented to the ED with a chief complaint of intractable nausea vomiting and abdominal pain. Patient reported that 3 days with was systolic have nausea or vomiting with the associated right upper quadrant pain which radiated to the right lower quadrant and right flank area, associated with loose stools, fever and headache. Since yesterday patient has not been able to keep anything down including water and has been intractable nausea and vomiting. Patient denied any burning pain on urination, frequency, hesitancy. Chief Complaint: Abdominal Pain Time Seen by MD: 06:54 Primary Care Provider: [facility] Reviewed Notes: Nurses Notes, Medications, Allergies Allergies: Coded Allergies: Ibuprofen (Verified Allergy, Severe, 07/15/22) Iodine (Verified Allergy, Severe, 07/15/22) Penicillins (Verified Allergy, Severe, 07/15/22) Aspirin (Verified Allergy, Unknown, 07/15/22) Uncoded Allergies: oranges (Allergy, Unknown, 08/04/24) Home Meds Active Scripts Ondansetron HCl (Ondansetron) 4 Mg Tab, 4 MG PO Q8HP PRN for 2 Days, #6 TAB 0 Refills Prov:CARTER MANSFIELD NP 02/08/25 Acetaminophen (Tylenol Extra Strength Fo) 500 Mg Tab, 650 MG PO TID, #30 TAB Prov:ANNA AGUILAR 09/29/24 Azithromycin (Azithromycin) 500 Mg Tab, 1 TAB PO DAILY, #5 TAB Prov:ANNA AGUILAR 09/29/24 Gabapentin (Gabapentin) 100 Mg Cap, 1 CAP PO TID for 30 Days, #90 CAP 2 Refills Prov:GEORGES DON MD 08/06/24 Meclizine HCl (Antivert) 25 Mg Chw, 25 MG PO DAILY PRN for 30 Days, #30 TAB.CHEW Prov:GEORGES DON MD 08/06/24 Ondansetron Odt 4MG Tab (ZOFRAN PO) 4 Mg Tb, 4 MG PO BIDPRN PRN for 30 Days, #60 TAB ODT TAB-DISSOLVE IN MOUTH, THEN SWALLOW Prov:GEORGES DON MD 08/06/24 Famotidine (Pepcid AC) 20 Mg Tab, 20 MG PO DAILY PRN for 30 Days, #30 TAB Prov:GEORGES DON MD 08/06/24 Reported Medications Topiramate (Topiramate) 25 Mg Tab, 1 TAB PO BID, #60 TAB 08/02/24 Levetiracetam (Keppra) 500 Mg Tab, 1 TAB PO BID, #180 TAB 3 Refills 08/02/24 Multiple Vitamin (Multivitamins) Tab, 1 TAB PO DAILY, #90 TAB 3 Refills 08/02/24 Albuterol Sulfate (VENTOLIN MDI) 90 Mcg Ih, 90 MCG IN, INH 08/02/24 Mode of Arrival: Ambulatory Past Medical History PAST MEDICAL HISTORY: Anemia, Asthma, Seizures Surgical History: Denies all surgeries CONTINUOUS IMPROVEMENT LEAD History: No Pertinent CONTINUOUS IMPROVEMENT LEAD History, Ovarian Cysts Family History Family History: Reviewed,noncontributory to illness Social History Smoker: Non-Smoker, Other Alcohol: Denies ETOH Use Drugs: Marijuana Lives In: Home Constitutional: reports: fatigue, fever EENTM: denies: blurred vision, double vision, ear bleeding, ear discharge, ear drainage, ear pain, ear ringing, eye pain, eye redness, hearing loss, mouth pain, mouth swelling, nasal discharge, nose bleeding, nose congestion, nose pain, photophobia, tearing, throat pain, throat swelling, voice changes, others Respiratory: denies: cough, hemoptysis, orthopnea, SOB at rest, shortness of breath, SOB with excertion, stridor, wheezing, others Cardiovascular: denies: chest pain, dizzy spells, diaphoresis, Dyspnea on exertion, edema, irregular heart beat, left arm pain, lightheadedness, palpitat ions, PND, syncope, others Gastrointestinal: reports: abdominal pain, diarrhea, nausea, poor fluid intake, vomiting Genitourinary: reports: flank pain (Right) Neurological: reports: headache Musculoskeletal: denies: back pain, gout, joint pain, joint swelling, muscle pain, muscle stiffness, neck pain, others Integumetry: denies: bruises, change in color, change in hair/nails, dryness, laceration, lesions, lumps, rash, wounds, others Allergic/Immunocompromised: denies: Difficulty Healing, Frequent Infections, Hives, Itching, others Hematologic/Lymphatic: denies: anemia, blood clots, easy bleeding, easy bruising, swollen glands, others Endocrine: denies: excessive hunger, excessive sweating, excessive thirst, excessive urination, flushing, intolerance to cold, intolerance to heat, unexplained weight gain, unexplained weight loss, others Psychiatric: denies: anxiety, bipolar disorder, depression, hopeless, panic disorder, schizophrenia, sleepless, suicidal, others Physical Exam General Appearance: Moderate Distress HEENT: PERRL/EOMI, Pharynx Normal Neck: Full Range of Motion, Non-Tender, Normal Inspection Respiratory: No Accessory Muscle Use, No Respiratory Distress, Normal Breath Sounds Cardiovascular: No Edema, No JVD, No Murmur, Regular Rate/Rhythm, Tachycardia Breast Exam: Deferred Gastrointestinal: No Organomegaly, Normal Bowel Sounds, RLQ, RUQ, Tenderness Genitalia: Deferred Pelvic: Deferred Rectal: Deferred Extremities: Normal inspection, Normal range of motion, Non-tender, No pedal edema Neurologic: Alert, steno typist II-XII nml as Tested, No Motor Deficits, No Sensory Defi cits Cerebellar Function: Normal Reflexes: NOT DONE Skin: Dry, Normal Color, Warm Peripheral Pulses: 2+ dorsalis pedis (R), 2+ dorsalis pedis (L), 2+ Radial (R), 2+ Radial (L) Lymphatic: No Adenopathy Was a procedure done? Was a procedure done?: No GI differential Dx Differential Diagnosis: Cholecystitis, Diverticular disease, Gastritis/PUD, Gastroenteritis, Pancreatitis, UTI, Urolithiasis, Dehydration, Food Poisoning X-Ray, Labs, Meds, VS Vital Signs Date Time Temp Pulse Resp B/P (MAP) Pulse Ox O2 Delivery O2 Flow Rate FiO2 05/03/25 11:00 97.8 78 19 132/73 (92) 98 97.8 05/03/25 09:52 75 16 129/86 05/03/25 09:22 79 18 125/75 05/03/25 08:39 82 18 98 Room Air 05/03/25 08:39 98.5 82 18 143/66 (91) 98 98.5 05/03/25 06:50 98.3 110 20 147/93 (111) 99 98.3 Lab Test 05/03/25 08:17 05/03/25 07:22 Range/Units Urine Color Light-orange Yellow Urine Clarity Ex.turbid Clear Urine pH 5.5 5.0-9.0 Urine Specific Notus 1.031 1.001-1.035 Urine Protein 1+ H Negative Urine Ketones Trace Negative Urine Blood 1+ H Negative /uL Urine Nitrite Negative Negative Urine Bilirubin Negative Negative Urine Urobilinogen Normal Negative mg/dL Urine Leukocyte Esterase Negative Negative /uL Urine RBC 30 0 - 4 /hpf Urine Microscopic WBC 40 H 0-5 /HPF Urine Squamous Epithelial Cells Many <5 /hpf Urine Bacteria Many H None Seen /hpf Urine Mucus Many None Seen Urine Glucose Normal Normal mg/dL Urine Test Negative Negative Urine Opiates Screen Neg NEGATIVE Urine Fentanyl Screen Neg NEGATIVE Urine Barbiturates Screen Neg NEGATIVE Urine Phencyclidine Screen Neg NEGATIVE Urine Amphetamines Screen Neg NEGATIVE Urine Benzodiazepines Screen Neg NEGATIVE Urine Cocaine Screen Neg NEGATIVE Urine Cannabinoids Screen Pos NEGATIVE White Blood Count 4.2 L 4.4-10.8 10^3/uL Red Blood Count 5.00 4.0-5.20 10^6/uL Hemoglobin 15.4 12.2-16.2 g/dL Hematocrit 45.0 36.0-46.0 % Mean Corpuscular Volume 90.0 80.0-100.0 fL Mean Corpuscular Hemoglobin 30.9 28.0-32.0 pg Mean Corpuscular Hemoglobin Concent 34.3 32.0-36.0 g/dL Red Cell Distribution Width 13.4 11.8-14.3 % Platelet Count 241 140-450 10^3/uL Mean Platelet Volume 7.9 6.9-10.8 fL Neutrophils (%) (Auto) 43.6 37.0-80.0 % Lymphocytes (%) (Auto) 49.6 10.0-50.0 % Monocytes (%) (Auto) 5.1 0.0-12.0 % Eosinophils (%) (Auto) 1.0 0.0-7.0 % Basophils (%) (Auto) 0.7 0.0-2.0 % Neutrophils # (Auto) 1.8 1.6-8.6 10 ^3/uL Lymphocytes # (Auto) 2.1 0.4-5.4 10 ^3/uL Monocytes # (Auto) 0.2 0-1.3 10 ^3/uL Eosinophils # (Auto) 0 0-0.8 10 ^3/uL Basophils # (Auto) 0 0-0.2 10 ^3/uL Nucleated Red Blood Cells 0.1 % Sodium Level 142 136-145 mmol/L Potassium Level 4.1 3.5-5.1 mmol/L Chloride Level 109 H 98-107 mmol/L Carbon Dioxide Level 27 20-31 mmol/L Anion Gap 6 5-15 Blood Urea Nitrogen 13 9-23 mg/dL Creatinine 0.78 0.550-1.02 mg/dL Glomerular Filtration Rate Calc 102 >90 mL/min BUN/Creatinine Ratio 16.7 10.0-20.0 Serum Glucose 87 74-106 mg/dL Lactic Acid Level 1.3 0.4-2.0 mmol/L Calcium Level 9.0 8.7-10.4 mg/dL Total Bilirubin 0.7 0.2-1.0 mg/dL Aspartate Amino Transferase (AST) 19 13-40 U/L Alanine Aminotransferase (ALT) 21 7-40 U/L Alkaline Phosphatase 41 L 46-116 U/L Total Protein 6.4 5.7-8.2 g/dL Albumin 4.1 3.2-4.8 g/dL Lipase 28 12-53 U/L Beta HCG, Quantitative 0.9 L 1.5-4.2 mIU/mL Current Medications Medications (Trade) Dose Ordered Sig/Louise Route Start Time Stop Time Status Last Admin Ondansetron HCl (Zofran) 4 mg ONCE ONCE IV 05/03/25 07:15 05/03/25 07:16 DC 05/03/25 08:25 Sodium Chloride 1,000 ml @ 1,000 mls/hr Q1H ONCE IV 05/03/25 07:45 05/03/25 08:44 DC 05/03/25 08:26 Morphine Sulfate 1 mg ONCE ONCE IV 05/03/25 09:15 05/03/25 09:16 DC 05/03/25 09:22 34-year-old female with a medical history of seizures, asthma, PCOS presented to the ED with a chief complaint of intractable nausea vomiting and right upper quadrant pain radiating to the right lower in the right flank area. On initial examination patient had tenderness in the right upper quadrant right lower quadrant, dehydrated with tachycardia. She had intractable nausea vomiting for which Zofran was given and CT abdomen pelvis without contrast was ordered along with labs including CMP, CBC, lipase. CTA abdomen pelvis showed gallbladder sludge and possible right ureteric stone, labs including CMP and CBC were grossly normal. Patient continued to have abdominal pain and gallbladder ultrasound was ordered. Patient is still not tolerating orally and will need further inpatient management. Patient agrees with the plan. Time of 1ST Reevaluation: 10:21 Reevaluation 1ST: Unchanged Patient Education/Counseling: Diagnosis, Treatment Family Education/Counseling: No Family Present SEPSIS Sepsis Screen Date sepsis recognized/suspect: May 03, 2025 Time Sepsis recognized/suspect: 650 Recent Procedure: No On Antibiotic Therapy: No Respiratory Rate >20: No Heart Rate >90: Yes Temp<36 C (96.8 F) or >38.3 C: No SBP <90 or MAP <65 mmHG: No New Acute Mental Status Change: No Is the patient on CPAP, BIPAP,: No Physician Orders Heplock Iv (05/03/25 07:06) Ct Ab Pel Wo Con-No Oral Or Iv (05/03/25 07:15) Gallbladder (05/03/25 10:54) Vital Signs Date Time Temp Pulse Resp B/P (MAP) Pulse Ox O2 Delivery O2 Flow Rate FiO2 05/03/25 11:00 97.8 78 19 132/73 (92) 98 97.8 05/03/25 09:52 75 16 129/86 05/03/25 09:22 79 18 125/75 05/03/25 08:39 82 18 98 Room Air 05/03/25 08:39 98.5 82 18 143/66 (91) 98 98.5 05/03/25 06:50 98.3 110 20 147/93 (111) 99 98.3 Laboratory Tests Test 05/03/25 07:22 Lactic Acid Level 1.3 mmol/L (0.4-2.0) White Blood Count 4.2 10^3/uL (4.4-10.8) L Medications Medications Dose Ordered Sig/Louise Route Start Time Stop Time Status Last Admin Dose Admin Morphine Sulfate 1 mg ONCE ONCE IV 05/03/25 09:15 05/03/25 09:16 DC 05/03/25 09:22 Ondansetron HCl 4 mg ONCE ONCE IV 05/03/25 07:15 05/03/25 07:16 DC 05/03/25 08:25 Sodium Chloride 1,000 ml @ 1,000 mls/hr Q1H ONCE IV 05/03/25 07:45 05/03/25 08:44 DC 05/03/25 08:26 Departure 1 Departure Time of Disposition: 11:26 Impression: Primary Impression: Acute abdominal pain in right upper quadrant Additional Impressions: Biliary colic Intractable nausea and vomiting Disposition: ADMITTED INPATIENT Condition: Stable Critical Care Note Critical Care Time?: No Stability Stability form required: No Heart Score Heart Score: Heart Score Response (Comments) Value History N/A 0 EKG N/A 0 Age N/A 0 Risk Factors N/A 0 Troponin N/A 0 Total 0 ERIC GARCIA RESIDENT May 03, 2025 07:31
[2025-05-03 07:34] LABS: Hematocrit 45.0 % (36.0-46.0); Hemoglobin 15.4 g/dL (12.2-16.2); Mean Corpuscular Hemoglobin 30.9 pg (28.0-32.0); Mean Corpuscular Volume 90.0 fL (80.0-100.0); Nucleated Red Blood Cells % 0.1 %
[2025-05-03 07:52] LABS: Alanine Aminotransferase 21 U/L (7-40); Albumin 4.1 g/dL (3.2-4.8); Anion Gap 6 (5-15); BUN/Creatinine Ratio 16.7 (10.0-20.0); Blood Urea Nitrogen 13 mg/dL (9-23); Calcium 9.0 mg/dL (8.7-10.4); Carbon Dioxide 27 mmol/L (20-31); Glucose 87 mg/dL (74-106); Lipase 28 U/L (12-53); Potassium 4.1 mmol/L (3.5-5.1); Sodium 142 mmol/L (136-145); Total Protein 6.4 g/dL (5.7-8.2)
[2025-05-03 07:53] LABS: Bilirubin, Total 0.7 mg/dL (0.2-1.0)
[2025-05-03 07:54] LABS: Alkaline Phosphatase 41 U/L (46-116); Chloride 109 mmol/L (98-107)
[2025-05-03] MEDS: ONDANSETRON HCL 4 MG/2 ML VIAL IV ONE (08:25)
[2025-05-03] MEDS: SODIUM CHLORIDE 0.9% 1,000 ML IV ONE (08:26)
[2025-05-03] MEDS: MORPHINE SULFATE INJ 2 MG/ml SYRG IV ONE (09:22)
[2025-05-03 10:06] LABS: Urine Protein, UAD 1+ (Negative)
--- NOTE | 2025-05-03 10:13 | DVH ---
Exam: CT CT AB PEL WO CON-NO ORAL OR IV History: RUQ, RLQ pain, intractable N/V Comparison Study: CT CT AB PEL WO CON-NO ORAL OR IV on DOS: 08/02/24 Technique: Multidetector spiral CT of the abdomen was performed from lung bases to pubic symphysis. I maging was performed without IV contrast. Axial, coronal and sagittal multiplanar reformats were obta ined from the axial data set by the technologist. Radiation Dose : 1. Abdomen/Pelvis: CTDIvol 26.1 mGy, DLP 1487.97 mGy*cm. Findings: Evaluation of solid organs is limited due to lack of intravenous contrast use. Lung Bases: No acute or significant lung base finding. Normal heart size. No pleural or pericardial effusion. Liver: The liver is normal in size. No focal lesions. Gallbladder and Biliary Tree: Unremarkable Spleen: Unremarkable Pancreas: The pancreas is grossly normal in appearance. Adrenal Glands: Unremarkable Kidneys: Kidneys are grossly normal without calculi or hydronephrosis. Bladder: Grossly unremarkable for degree of distention. Bowel: The stomach is grossly normal in appearance. Small bowel and colon are normal in caliber and d istribution. Normal appendix is visualized in the right lower quadrant without findings of appendicit is. Ascites: Absent Lymphadenopathy: No mesenteric, retroperitoneal or periportal lymphadenopathy. Abdominal Wall and Mesentery: Unremarkable. Vasculature: The visualized abdominal aorta is normal in size and caliber. Evaluation of abdominal a nd pelvic vessels is limited due to lack of intravenous contrast. Pelvic Organs: Unremarkable Musculoskeletal: No aggressive focal bony lesions, acute fractures or dislocation. IMPRESSION: No acute abdominal or pelvic findings. Radiation optimization: All CT scans at this facility use at least one of these dose optimization toney hniques: automated exposure control mA and/or kV adjustment per patient size (includes targeted exam s where dose is matched to clinical indication) or iterative reconstruction.
[2025-05-03 10:18] LABS: Cannabinoid Screen, Urine Pos (NEGATIVE)
[2025-05-03 10:19] LABS: Amphetamine Screen, Urine Neg (NEGATIVE); Barbiturate Scree,Urine Neg (NEGATIVE); Benzodiazephine Screen, Urine Neg (NEGATIVE); Cocaine Screen, Urine Neg (NEGATIVE); Opiate Scree,Urine Neg (NEGATIVE); Phencyclidine Screen, Urine Neg (NEGATIVE)
--- NOTE | 2025-05-03 11:49 | DVH ---
INDICATION: RUQ US TECHNIQUE: Multiple real-time sonographic images were obtained of the right upper quadrant. COMPARISON: US GALLBLADDER on DOS: 08/02/24 FINDINGS: Evaluation is limited due to patient movement. The liver demonstrates increased echotexture without focal mass lesions. The liver measures 14 cm. There is no intrahepatic or extrahepatic ductal dilatation. The common duct measures 4 mm. Gallstones and gallbladder sludge. The gallbladder wall measures 2 mm and is within normal limits. The right kidney measures 9.0 cm. The right kidney is normal in contour, size, and shape. The echoge nicity is normal. There is no hydronephrosis. The pancreas is not well visualized due to overlying bowel gas. IMPRESSION: Evaluation is limited due to patient movement. Hepatic steatosis. Cholelithiasis without sonographic evidence acute cholecystitis.
[2025-05-03] MEDS ORDERED: DOCUSATE SOD 100 MG CAP PO PRN (14:30)
--- NOTE | 2025-05-03 14:47 | DVHHP2 ---
History of Present Illness Reason for Visit: Abdominal pain History of Present Illness Fatoumata Cueva is a 34-year-old female with past medical history of asthma, PCOS, and seizures, who came to the hospital for abdominal pain. Patient states her abdominal pain began about 3 days ago. The pain is in her RUQ and RLQ and radiates to her back. She has associated nausea, vomiting, and diarrhea. She has not been able to keep much down other than water for the last 3 days. Pulmonary: Asthma SENIOR TECHNICAL PROGRAM MANAGER: Seizure Past Medical History PCOS Past Surgical History: None Family History: None Smoke: No ALCOHOL: none Drugs: Marijuana Lives: with Family Domestic Violence: Neg Review of Systems Constitutional: No: Fever, Chills, Sweats, Weakness, Malaise, Other Eyes: No: Pain, Vision change, Conjunctivae inflammation, Eyelid inflammation, Other, Redness ENT: No: Ear pain, Ear discharge, Nose pain, Nose discharge, Nose congestion, Mouth pain, Mouth swelling, Throat pain, Throat swelling, Other Respiratory: No: Cough, Dry, Shortness of breath, SOB with excertion, Wheezing, Hemoptysis, Pleuritic Pain, Sputum, Wheezing, Other Cardiovascular: No: Chest Pain, Palpitations, Orthopnea, Paroxysmal Noc. Dyspnea, Edema, Lt Headedness, Other Gastrointestinal: Nausea, Vomiting, Abdominal Pain, Diarrhea; No: Constipation, Melena, Hematochezia, Other Genitourinary: No Dysuria, No Frequency, No Incontinence, No Hematuria, No Retention, No Other Musculoskeletal: No: other, neck pain, shoulder pain, arm pain, back pain, hand pain, leg pain, foot pain Skin: No: Rash, Lesions, Jaundice, Bruising, Other Neurological: No: Weakness, Numbness, Incoordination, Change in speech, Confusion, Seizures, Other Allergies: Coded Allergies: Ibuprofen (Verified Allergy, Severe, 07/15/22) Iodine (Verified Allergy, Severe, 07/15/22) Penicillins (Verified Allergy, Severe, 07/15/22) Aspirin (Verified Allergy, Unknown, 07/15/22) Uncoded Allergies: oranges (Allergy, Unknown, 08/04/24) Medications Current Medications Medications Dose Ordered Sig/Louise Route Start Time Stop Time Status Last Admin Dose Admin Acetaminophen/ Hydrocodone Bitart 1 tab Q4HP PRN PO 05/03/25 14:30 UNV Ondansetron HCl 4 mg Q4HP PRN IV 05/03/25 14:30 UNV Docusate Sodium 100 mg BIDPRN PRN PO 05/03/25 14:30 UNV Acetaminophen 650 mg Q6HP PRN PO 05/03/25 14:30 UNV Morphine Sulfate 2 mg Q4HPRN PRN IV 05/03/25 14:30 UNV Gabapentin 100 mg BID PO 05/03/25 22:00 UNV Levetiracetam 500 mg BID PO 05/03/25 22:00 UNV Multivitamins 1 tab DAILY PO 05/04/25 10:00 UNV Topiramate 25 mg BID PO 05/03/25 22:00 UNV Exam Vital Signs Vital Signs Date Time Temp Pulse Resp B/P (MAP) Pulse Ox O2 Delivery O2 Flow Rate FiO2 05/03/25 11:00 97.8 78 19 132/73 (92) 98 97.8 05/03/25 08:39 Room Air General Appearance: Alert, Oriented X3, Cooperative, mild distress HEENT: Atraumatic, PERRLA Respiratory: Clear to auscultation, Normal air movement Cardiovascular: Regular rate, Normal S1, Normal S2, No murmurs Abdominal: Normal bowel sounds, Soft, Other (RUQ and RLQ pain that radiates to back) Extremities: No clubbing, No cyanosis, No edema, Normal pulses, No tenderness/swelling Skin: No rashes, No breakdown, No significant lesion Neuro: Normal gait, Normal speech, Strength at 5/5 X4 ext Psych/Mental Status: Mental status NL, Mood NL Labs/Xrays Labs Test 05/03/25 08:17 05/03/25 07:22 Range/Units Urine Color Light-orange Yellow Urine Clarity Ex.turbid Clear Urine pH 5.5 5.0-9.0 Urine Specific [place] 1.031 1.001-1.035 Urine Protein 1+ H Negative Urine Ketones Trace Negative Urine Blood 1+ H Negative /uL Urine Nitrite Negative Negative Urine Bilirubin Negative Negative Urine Urobilinogen Normal Negative mg/dL Urine Leukocyte Esterase Negative Negative /uL Urine RBC 30 0 - 4 /hpf Urine Microscopic WBC 40 H 0-5 /HPF Urine Squamous Epithelial Cells Many <5 /hpf Urine Bacteria Many H None Seen /hpf Urine Mucus Many None Seen Urine Glucose Normal Normal mg/dL Urine Test Negative Negative Urine Opiates Screen Neg NEGATIVE Urine Fentanyl Screen Neg NEGATIVE Urine Barbiturates Screen Neg NEGATIVE Urine Phencyclidine Screen Neg NEGATIVE Urine Amphetamines Screen Neg NEGATIVE Urine Benzodiazepines Screen Neg NEGATIVE Urine Cocaine Screen Neg NEGATIVE Urine Cannabinoids Screen Pos NEGATIVE White Blood Count 4.2 L 4.4-10.8 10^3/uL Red Blood Count 5.00 4.0-5.20 10^6/uL Hemoglobin 15.4 12.2-16.2 g/dL Hematocrit 45.0 36.0-46.0 % Mean Corpuscular Volume 90.0 80.0-100.0 fL Mean Corpuscular Hemoglobin 30.9 28.0-32.0 pg Mean Corpuscular Hemoglobin Concent 34.3 32.0-36.0 g/dL Red Cell Distribution Width 13.4 11.8-14.3 % Platelet Count 241 140-450 10^3/uL Mean Platelet Volume 7.9 6.9-10.8 fL Neutrophils (%) (Auto) 43.6 37.0-80.0 % Lymphocytes (%) (Auto) 49.6 10.0-50.0 % Monocytes (%) (Auto) 5.1 0.0-12.0 % Eosinophils (%) (Auto) 1.0 0.0-7.0 % Basophils (%) (Auto) 0.7 0.0-2.0 % Neutrophils # (Auto) 1.8 1.6-8.6 10 ^3/uL Lymphocytes # (Auto) 2.1 0.4-5.4 10 ^3/uL Monocytes # (Auto) 0.2 0-1.3 10 ^3/uL Eosinophils # (Auto) 0 0-0.8 10 ^3/uL Basophils # (Auto) 0 0-0.2 10 ^3/uL Nucleated Red Blood Cells 0.1 % Sodium Level 142 136-145 mmol/L Potassium Level 4.1 3.5-5.1 mmol/L Chloride Level 109 H 98-107 mmol/L Carbon Dioxide Level 27 20-31 mmol/L Anion Gap 6 5-15 Blood Urea Nitrogen 13 9-23 mg/dL Creatinine 0.78 0.550-1.02 mg/dL Glomerular Filtration Rate Calc 102 >90 mL/min BUN/Creatinine Ratio 16.7 10.0-20.0 Serum Glucose 87 74-106 mg/dL Lactic Acid Level 1.3 0.4-2.0 mmol/L Calcium Level 9.0 8.7-10.4 mg/dL Total Bilirubin 0.7 0.2-1.0 mg/dL Aspartate Amino Transferase (AST) 19 13-40 U/L Alanine Aminotransferase (ALT) 21 7-40 U/L Alkaline Phosphatase 41 L 46-116 U/L Total Protein 6.4 5.7-8.2 g/dL Albumin 4.1 3.2-4.8 g/dL Lipase 28 12-53 U/L Beta HCG, Quantitative 0.9 L 1.5-4.2 mIU/mL Exam: CT CT AB PEL WO CON-NO ORAL OR IV Findings: Evaluation of solid organs is limited due to lack of intravenous contrast use. Lung Bases: No acute or significant lung base finding. Normal heart size. No pleural or pericardial effusion. Liver: The liver is normal in size. No focal lesions. Gallbladder and Biliary Tree: Unremarkable Spleen: Unremarkable Pancreas: The pancreas is grossly normal in appearance. Adrenal Glands: Unremarkable Kidneys: Kidneys are grossly normal without calculi or hydronephrosis. Bladder: Grossly unremarkable for degree of distention. Bowel: The stomach is grossly normal in appearance. Small bowel and colon are normal in caliber and distribution. Normal appendix is visualized in the right lower quadrant without findings of appendicitis. Ascites: Absent Lymphadenopathy: No mesenteric, retroperitoneal or periportal lymphadenopathy. Abdominal Wall and Mesentery: Unremarkable. Vasculature: The visualized abdominal aorta is normal in size and caliber. Evaluation of abdominal and pelvic vessels is limited due to lack of intravenous contrast. Pelvic Organs: Unremarkable Musculoskeletal: No aggressive focal bony lesions, acute fractures or dislocation. IMPRESSION: No acute abdominal or pelvic findings. INDICATION: RUQ US FINDINGS: Evaluation is limited due to patient movement. The liver demonstrates increased echotexture without focal mass lesions. The liver measures 14 cm. There is no intrahepatic or extrahepatic ductal dilatation. The common duct measures 4 mm. Gallstones and gallbladder sludge. The gallbladder wall measures 2 mm and is within normal limits. The right kidney measures 9.0 cm. The right kidney is normal in contour, size, and shape. The echogenicity is normal. There is no hydronephrosis. The pancreas is not well visualized due to overlying bowel gas. IMPRESSION: Evaluation is limited due to patient movement. Hepatic steatosis. Cholelithiasis without sonographic evidence acute cholecystitis. SEPSIS Sepsis Screen Date sepsis recognized/suspect: May 03, 2025 Time Sepsis recognized/suspect: 650 Recent Procedure: No On Antibiotic Therapy: No Respiratory Rate >20: No Heart Rate >90: Yes Temp<36 C (96.8 F) or >38.3 C: No SBP <90 or MAP <65 mmHG: No New Acute Mental Status Change: No Is the patient on CPAP, BIPAP,: No Physician Orders Heplock Iv (05/03/25 07:06) Ct Ab Pel Wo Con-No Oral Or Iv (05/03/25 07:15) Gallbladder (05/03/25 10:54) Admit (05/03/25 14:20) Code Status (05/03/25 14:20) Hydrocodone-Acet 5/325mg Tab ([place] /32 (05/03/25 14:30) Ondansetron Hcl (Zofran) (05/03/25 14:30) Docusate Sodium Capsule (Colace Capsule) (05/03/25 14:30) Complete Blood Count (05/04/25 04:00) Comprehensive Metabolic Panel (05/04/25 04:00) Condition: Serious (05/03/25 14:20) Acetaminophen Tablet (Tylenol Tablet) (05/03/25 14:30) Clear Liq Diet (05/03/25 Dinner) Morphine Sulfate Injection (05/03/25 14:30) Gabapentin Capsule (Neurontin Capsule) (05/03/25 22:00) Levetiracetam Tablet (Keppra Tablet) (05/03/25 22:00) Multiple Vitamin Tablet (Mvi Tab) (05/04/25 10:00) Topiramate (Topamax) (05/03/25 22:00) Vital Signs Date Time Temp Pulse Resp B/P (MAP) Pulse Ox O2 Delivery O2 Flow Rate FiO2 05/03/25 11:00 97.8 78 19 132/73 (92) 98 97.8 05/03/25 09:52 75 16 129/86 05/03/25 09:22 79 18 125/75 05/03/25 08:39 82 18 98 Room Air 05/03/25 08:39 98.5 82 18 143/66 (91) 98 98.5 05/03/25 06:50 98.3 110 20 147/93 (111) 99 98.3 Laboratory Tests Test 05/03/25 07:22 Lactic Acid Level 1.3 mmol/L (0.4-2.0) White Blood Count 4.2 10^3/uL (4.4-10.8) L Medications Medications Dose Ordered Sig/Louise Route Start Time Stop Time Status Last Admin Dose Admin Morphine Sulfate 1 mg ONCE ONCE IV 05/03/25 09:15 05/03/25 09:16 DC 05/03/25 09:22 1 MG Ondansetron HCl 4 mg ONCE ONCE IV 05/03/25 07:15 05/03/25 07:16 DC 05/03/25 08:25 4 MG Sodium Chloride 1,000 ml @ 1,000 mls/hr Q1H ONCE IV 05/03/25 07:45 05/03/25 08:44 DC 05/03/25 08:26 1,000 MLS/HR Assessment/Plan Assessment/Plan Assessment: Acute abdominal pain in right upper quadrant, Biliary colic, Cholelithiasis, Seizures, Plan: Admit to Med-Surg, Surgical consult, HIDA scan, Antiemetics, Pain management, IV hydration, PT/PTT, Chest X-ray, Plan discussed with: Patient My Orders Orders - ANDREW BELLAMY BRICKMASON HELPER Procedure Category Date Status Time Admit ADMIT 05/03/25 Transmitted 14:20 Code Status CODE 05/03/25 Transmitted 14:20 Hydrocodone-Acet PHA 05/03/25 Logged 5/325mg Tab ([place] 14:30 Ondansetron Hcl PHA 05/03/25 Logged (Zofran) 14:30 Docusate Sodium PHA 05/03/25 Logged Capsule (Colace 14:30 Complete Blood Count LAB 05/04/25 Verified 04:00 Comprehensive LAB 05/04/25 Verified Metabolic Panel 04:00 Condition: Serious GERMAN 05/03/25 In Process 14:20 Acetaminophen Tablet PHA 05/03/25 Logged (Tylenol Tablet) 14:30 Clear Liq Diet DIET 05/03/25 Transmitted Dinner Morphine Sulfate PHA 05/03/25 Logged Injection 14:30 Gabapentin Capsule PHA 05/03/25 Logged (Neurontin Capsule) 22:00 Levetiracetam Tablet PHA 05/03/25 Logged (Keppra Tablet) 22:00 Multiple Vitamin PHA 05/04/25 Logged Tablet (Mvi Tab) 10:00 Topiramate (Topamax) PHA 05/03/25 Logged 22:00 Date of Service: May 03, 2025 Billing Provider: ANDREW BELLAMY Common Visit Codes: [id number] INP/OBS CARE (MOD) ANDREW BELLAMY May 03, 2025 14:47
--- NOTE | 2025-05-03 14:55 | DVH ---
EXAM: XY CHEST XRAY 1 VIEW Indication: pain Technique: Single frontal view of the chest was obtained Comparison: XY CHEST XRAY 1 VIEW on DOS: 09/29/24, XY CHEST PORTABLE on DOS: 08/02/24, XY CHEST ESPERANZA BLE on DOS: 06/06/24, CHEST PORTABLE on DOS: 06/19/22, CXRP on DOS: 06/19/22 FINDINGS: Lines and Tubes: None Lungs: No focal consolidation. Pleura: No effusion. No pneumothorax. Cardiomediastinal contours: Unremarkable Bones: No acute osseous abnormality. IMPRESSION: No acute cardiopulmonary disease.
[2025-05-03] MEDS: GABAPENTIN 100 MG CAP PO ONE (15:03)
[2025-05-03 15:21] LABS: INR 1.02 (0.9-1.15); Partial Thromboplastin Time 23.6 SEC (24.5-34.5); Prothrombin Time 10.8 sec (9.3-11.8)
[2025-05-03 15:40] VITALS: BP 132/94; PULSE 70; RESP 22; TEMP 98.5; O2SAT 100
[2025-05-03] MEDS ORDERED: CHOL20007 OR (16:12)
[2025-05-03 16:39] VITALS: PULSE 70; RESP 22; O2SAT 100
[2025-05-03 16:42] VITALS: BP 132/94; PULSE 78; RESP 19; TEMP 98.5; O2SAT 100
[2025-05-03] MEDS: METOCLOPRAMIDE HCL 5MG/ml INJ 2ml VIAL IV PRN (17:05)
[2025-05-03] MEDS: MORPHINE SULFATE INJ 2 MG/ml SYRG IV PRN ×2 (17:09→23:18)
[2025-05-03] MEDS: SODIUM CHLORIDE 0.9% 1,000 ML IV SCH (17:18)
[2025-05-03 20:00] VITALS: PULSE 75; RESP 17; O2SAT 97
[2025-05-03 21:00] VITALS: BP 111/52; PULSE 75; RESP 17; TEMP 97.5; O2SAT 97
[2025-05-03] MEDS: TOPIRAMATE 25 MG TAB PO SCH (23:06)
[2025-05-03] MEDS: levETIRAcetam 500 MG TAB PO SCH (23:06)
[2025-05-04] VITALS (8 sets, daily range): BP systolic 116–148; BP diastolic 78–102; PULSE 57–79; RESP 17–20; TEMP 97.5–98.1; O2SAT 92–100
[2025-05-04 06:39] LABS: Hematocrit 37.2 % (36.0-46.0); Hemoglobin 13.0 g/dL (12.2-16.2); Mean Corpuscular Hemoglobin 31.6 pg (28.0-32.0); Mean Corpuscular Volume 90.2 fL (80.0-100.0); Nucleated Red Blood Cells % 0.0 %
[2025-05-04 07:01] LABS: Alanine Aminotransferase 15 U/L (7-40); Albumin 3.6 g/dL (3.2-4.8); Alkaline Phosphatase 35 U/L (46-116); Anion Gap 7 (5-15); BUN/Creatinine Ratio 15.9 (10.0-20.0); Blood Urea Nitrogen 11 mg/dL (9-23); Calcium 9.1 mg/dL (8.7-10.4); Carbon Dioxide 26 mmol/L (20-31); Chloride 109 mmol/L (98-107); Glucose 72 mg/dL (74-106); Potassium 3.9 mmol/L (3.5-5.1); Sodium 142 mmol/L (136-145); Total Protein 5.6 g/dL (5.7-8.2)
[2025-05-04 07:02] LABS: Bilirubin, Total 0.8 mg/dL (0.2-1.0)
[2025-05-04] MEDS: GABAPENTIN 100 MG CAP PO SCH (09:51)
[2025-05-04] MEDS: MULTIPLE VITAMIN TAB PO SCH (09:53)
--- NOTE | 2025-05-04 11:54 | DVHINCON2 ---
Date of service: May 04, 2025 Family History: Diabetes mellitus G8 MOTHER Allergies: Coded Allergies: Ibuprofen (Verified Allergy, Severe, 07/15/22) Iodine (Verified Allergy, Severe, 07/15/22) Penicillins (Verified Allergy, Severe, 07/15/22) Aspirin (Verified Allergy, Unknown, 07/15/22) Uncoded Allergies: oranges (Allergy, Unknown, 08/04/24) Home Meds Active Scripts Gabapentin (Gabapentin) 100 Mg Cap, 1 CAP PO TID for 30 Days, #90 CAP 2 Refills Prov:GEORGES ODN MD 08/06/24 Reported Medications Cholecalciferol (VITAMIN D3) 2,000 Unit Tab, 2000 UNIT OR, TAB 05/03/25 Topiramate (Topiramate) 25 Mg Tab, 1 TAB PO BID, #60 TAB 08/02/24 Levetiracetam (Keppra) 500 Mg Tab, 1 TAB PO BID, #180 TAB 3 Refills 08/02/24 Multiple Vitamin (Multivitamins) Tab, 1 TAB PO DAILY, #90 TAB 3 Refills 08/02/24 Albuterol Sulfate (VENTOLIN MDI) 90 Mcg Ih, 90 MCG IN, INH 08/02/24 Discontinued Scripts Ondansetron HCl (Ondansetron) 4 Mg Tab, 4 MG PO Q8HP PRN for 2 Days, #6 TAB 0 Refills Prov:CARTER MANSFIELD RECOVERY OPERATOR 02/08/25 Acetaminophen (Tylenol Extra Strength Fo) 500 Mg Tab, 650 MG PO TID, #30 TAB Prov:ANNA AGUILAR 09/29/24 Azithromycin (Azithromycin) 500 Mg Tab, 1 TAB PO DAILY, #5 TAB Prov:ANNA AGUILAR 09/29/24 Meclizine HCl (Antivert) 25 Mg Chw, 25 MG PO DAILY PRN for 30 Days, #30 TAB.CHEW Prov:GEORGES DON MD 08/06/24 Ondansetron Odt 4MG Tab (ZOFRAN PO) 4 Mg Tb, 4 MG PO BIDPRN PRN for 30 Days, #60 TAB ODT TAB-DISSOLVE IN MOUTH, THEN SWALLOW Prov:GEORGES DON MD 08/06/24 Famotidine (Pepcid AC) 20 Mg Tab, 20 MG PO DAILY PRN for 30 Days, #30 TAB Prov:GEORGES DON MD 08/06/24 Current Medications Current Medications Medications (Trade) Dose Ordered Sig/Louise Route PRN Reason Start Time Stop Time Status Last Admin Acetaminophen/ Hydrocodone Bitart ([place] 5/325MG Tab) 1 tab Q4HP PRN PO MODERATE PAIN (4-6 PAIN SCALE) 05/03/25 14:30 Ondansetron HCl (Zofran) 4 mg Q4HP PRN IV NAUSEA / VOMITING 05/03/25 14:30 Docusate Sodium (Colace Capsule) 100 mg BIDPRN PRN PO FOR CONSTIPATION 05/03/25 14:30 Acetaminophen (Tylenol Tablet) 650 mg Q6HP PRN PO PAIN SCALE 1-3 OR TEMP>100.4 05/03/25 14:30 Morphine Sulfate 2 mg Q4HPRN PRN IV SEVERE PAIN (7-10 PAIN SCALE) 05/03/25 14:30 05/03/25 23:18 Gabapentin (Neurontin Capsule) 100 mg DAILY PO 05/04/25 10:00 05/04/25 09:51 Levetiracetam (Keppra Tablet) 500 mg BID PO 05/03/25 22:00 05/04/25 09:50 Multivitamins (Mvi Tab) 1 tab DAILY PO 05/04/25 10:00 Topiramate (Topamax) 25 mg BID PO 05/03/25 22:00 05/04/25 09:50 Metoclopramide HCl (Reglan Injection) 10 mg Q6HPRN PRN IV NAUSEA / VOMITING 05/03/25 17:00 05/04/25 09:48 Morphine Sulfate 1 mg ONCE PRN IV MODERATE PAIN (4-6 PAIN SCALE) 05/03/25 17:00 05/03/25 17:09 Sodium Chloride 1,000 ml @ 100 mls/hr Q10H IV 05/03/25 17:00 05/04/25 05:25 Vital Signs Vital Signs Date Time Temp Pulse Resp B/P (MAP) Pulse Ox O2 Delivery O2 Flow Rate FiO2 05/04/25 08:30 98.1 57 19 148/95 (112) 92 98.1 05/04/25 08:00 Room Air* 0 21 Labs/Diagnostic Data Labs Test 05/04/25 05:46 05/03/25 14:46 05/03/25 08:17 05/03/25 07:22 Range/Units White Blood Count 3.5 L 4.4-10.8 10^3/uL Red Blood Count 4.12 4.0-5.20 10^6/uL Hemoglobin 13.0 # 12.2-16.2 g/dL Hematocrit 37.2 # 36.0-46.0 % Mean Corpuscular Volume 90.2 80.0-100.0 fL Mean Corpuscular Hemoglobin 31.6 28.0-32.0 pg Mean Corpuscular Hemoglobin Concent 35.0 32.0-36.0 g/dL Red Cell Distribution Width 13.4 11.8-14.3 % Platelet Count 181 140-450 10^3/uL Mean Platelet Volume 8.0 6.9-10.8 fL Neutrophils (%) (Auto) 43.1 37.0-80.0 % Lymphocytes (%) (Auto) 47.2 10.0-50.0 % Monocytes (%) (Auto) 7.7 0.0-12.0 % Eosinophils (%) (Auto) 1.3 0.0-7.0 % Basophils (%) (Auto) 0.7 0.0-2.0 % Neutrophils # (Auto) 1.5 L 1.6-8.6 10 ^3/uL Lymphocytes # (Auto) 1.7 0.4-5.4 10 ^3/uL Monocytes # (Auto) 0.3 0-1.3 10 ^3/uL Eosinophils # (Auto) 0 0-0.8 10 ^3/uL Basophils # (Auto) 0 0-0.2 10 ^3/uL Nucleated Red Blood Cells 0.0 % Sodium Level 142 136-145 mmol/L Potassium Level 3.9 3.5-5.1 mmol/L Chloride Level 109 H 98-107 mmol/L Carbon Dioxide Level 26 20-31 mmol/L Anion Gap 7 5-15 Blood Urea Nitrogen 11 9-23 mg/dL Creatinine 0.69 0.550-1.02 mg/dL Glomerular Filtration Rate Calc 117 >90 mL/min BUN/Creatinine Ratio 15.9 10.0-20.0 Serum Glucose 72 L 74-106 mg/dL Calcium Level 9.1 8.7-10.4 mg/dL Total Bilirubin 0.8 0.2-1.0 mg/dL Aspartate Amino Transferase (AST) 16 13-40 U/L Alanine Aminotransferase (ALT) 15 7-40 U/L Alkaline Phosphatase 35 L 46-116 U/L Total Protein 5.6 L 5.7-8.2 g/dL Albumin 3.6 3.2-4.8 g/dL Prothrombin Time 10.8 9.3-11.8 sec Prothrombin Time INR 1.02 0.9-1.15 Activated Partial Thromboplast Time 23.6 L 24.5-34.5 SEC Urine Color Light-orange Yellow Urine Clarity Ex.turbid Clear Urine pH 5.5 5.0-9.0 Urine Specific [place] 1.031 1.001-1.035 Urine Protein 1+ H Negative Urine Ketones Trace Negative Urine Blood 1+ H Negative /uL Urine Nitrite Negative Negative Urine Bilirubin Negative Negative Urine Urobilinogen Normal Negative mg/dL Urine Leukocyte Esterase Negative Negative /uL Urine RBC 30 0 - 4 /hpf Urine Microscopic WBC 40 H 0-5 /HPF Urine Squamous Epithelial Cells Many <5 /hpf Urine Bacteria Many H None Seen /hpf Urine Mucus Many None Seen Urine Glucose Normal Normal mg/dL Urine Test Negative Negative Urine Opiates Screen Neg NEGATIVE Urine Fentanyl Screen Neg NEGATIVE Urine Barbiturates Screen Neg NEGATIVE Urine Phencyclidine Screen Neg NEGATIVE Urine Amphetamines Screen Neg NEGATIVE Urine Benzodiazepines Screen Neg NEGATIVE Urine Cocaine Screen Neg NEGATIVE Urine Cannabinoids Screen Pos NEGATIVE Lactic Acid Level 1.3 0.4-2.0 mmol/L Lipase 28 12-53 U/L Beta HCG, Quantitative 0.9 L 1.5-4.2 mIU/mL Assessment MORBIDLY OBESE 34 YEAR OLD FEMALE WITH ABDOMINAL PAIN FOR EXTENDED PERIOD OF TIME, SHE IS IN TEARS BECAUSE"SHE NEVER HAD TO HAVE ANY SURGERY". i EXPLAINED TO HER THAT HER CONDITION IS NOIT AN EMERGENT ONE (wbc NORMAL, LIVER ENZYMES NORMAL, AFEBRILE, ABDOMEN NON TENDER, AWAITING HIDA SCAN. Plan discussed with: Patient EZE YING MD May 04, 2025 11:54
--- NOTE | 2025-05-04 14:28 | DVH ---
CLINICAL INFORMATION: Biliary colic, Cholelithiasis,. TECHNIQUE: 5.7 mCi of Choletec were administered intravenously. Images of the upper abdomen were ob tained at 2 minute intervals up to a total time of 34 minutes. COMPARISON: Ultrasound dated 05/03/[address] dated 05/03/2025. FINDINGS: There is prompt gallbladder visualization. There is prompt excretion of activity from the biliary ductal system into the small bowel. There is no evidence of acute cholecystitis. IMPRESSION: No scintigraphic evidence of acute cholecystitis. Otherwise unremarkable examination.
--- NOTE | 2025-05-04 14:39 | DVHPN2 ---
Reviewed: Care Plan, H&P, Labs, Medications, Previous Orders, Radiology Changes from previous H/P or p: No Changes General: Per HPI Eyes: No Pain, No Vision change, No Conjunctivae inflammation, No Eyelid inflammation, No Other, No Redness ENT: No Ear pain, No Ear discharge, No Nose pain, No Nose discharge, No Nose congestion, No Mouth pain, No Mouth swelling, No Throat pain, No Throat swelling, No Other Cardiovascular: No Chest Pain, No Palpitations, No Orthopnea, No Paroxysmal Noc. Dyspnea, No Edema, No Lt Headedness, No Other Respiratory: No Cough, No Dry, No Shortness of breath, No SOB with excertion, No Wheezing, No Hemoptysis, No Pleuritic Pain, No Sputum, No Other Gastrointestinal: Nausea, Vomiting, Abdominal Pain, Diarrhea; No Constipation, No Melena, No Hematochezia, No Other Genitourinary: No Dysuria, No Frequency, No Incontinence, No Hematuria, No Retention, No Other Musculoskeletal: No other, No neck pain, No shoulder pain, No arm pain, No back pain, No hand pain, No leg pain, No foot pain Skin: No Rash, No Lesions, No Jaundice, No Bruising, No Other Objective Vitals Vital Signs Date Time Temp Pulse Resp B/P (MAP) Pulse Ox O2 Delivery O2 Flow Rate FiO2 05/04/25 12:27 98.0 75 20 116/78 (91) 92 98.0 05/04/25 08:00 Room Air* 0 21 Intake/Output Intake and Output 05/04/25 07:00 Intake Total 1200 ml Balance 1200 ml Intake Oral 0 ml IV Total 1200 ml # Voids 3 Medications Current Medications Medications Dose Ordered Sig/Louise Route Start Time Stop Time Status Last Admin Dose Admin Acetaminophen/ Hydrocodone Bitart 1 tab Q4HP PRN PO 05/03/25 14:30 Ondansetron HCl 4 mg Q4HP PRN IV 05/03/25 14:30 Docusate Sodium 100 mg BIDPRN PRN PO 05/03/25 14:30 Acetaminophen 650 mg Q6HP PRN PO 05/03/25 14:30 Morphine Sulfate 2 mg Q4HPRN PRN IV 05/03/25 14:30 05/03/25 23:18 2 MG Gabapentin 100 mg DAILY PO 05/04/25 10:00 05/04/25 09:51 100 MG Levetiracetam 500 mg BID PO 05/03/25 22:00 05/04/25 09:50 500 MG Multivitamins 1 tab DAILY PO 05/04/25 10:00 Topiramate 25 mg BID PO 05/03/25 22:00 05/04/25 09:50 25 MG Metoclopramide HCl 10 mg Q6HPRN PRN IV 05/03/25 17:00 05/04/25 09:48 10 MG Morphine Sulfate 1 mg ONCE PRN IV 05/03/25 17:00 05/03/25 17:09 1 MG Sodium Chloride 1,000 ml @ 100 mls/hr Q10H IV 05/03/25 17:00 05/04/25 05:25 100 MLS/HR Laboratory Results Laboratory Tests 05/04/25 05:46 Chemistry Test 05/04/25 05:46 Albumin 3.6 g/dL (3.2-4.8) Calcium Level 9.1 mg/dL (8.7-10.4) Total Protein 5.6 g/dL (5.7-8.2) L Coagulation Test 05/03/25 14:46 Prothrombin Time 10.8 sec (9.3-11.8) Prothrombin Time INR 1.02 (0.9-1.15) Activated Partial Thromboplast Time 23.6 SEC (24.5-34.5) L LFT Test 05/04/25 05:46 Alanine Aminotransferase (ALT) 15 U/L (7-40) Alkaline Phosphatase 35 U/L (46-116) L Aspartate Amino Transferase (AST) 16 U/L (13-40) Total Bilirubin 0.8 mg/dL (0.2-1.0) Urinalysis Test 05/03/25 08:17 Urine Color Light-orange (Yellow) Urine Clarity Ex.turbid (Clear) Urine pH 5.5 (5.0-9.0) Urine Specific [place] 1.031 (1.001-1.035) Urine Protein 1+ (Negative) H Urine Ketones Trace (Negative) Urine Blood 1+ /uL (Negative) H Urine Nitrite Negative (Negative) Urine Bilirubin Negative (Negative) Urine Urobilinogen Normal mg/dL (Negative) Urine Leukocyte Esterase Negative /uL (Negative) Urine RBC 30 /hpf (0 - 4) Urine Microscopic WBC 40 /HPF (0-5) H Urine Squamous Epithelial Cells Many /hpf (<5) Urine Bacteria Many /hpf (None Seen) H Urine Mucus Many (None Seen) Urine Glucose Normal mg/dL (Normal) Urine Test Negative (Negative) Assessment/Plan Assessment/Plan Fatoumata Cueva is a 34-year-old female with past medical history of asthma, PCOS, and seizures, who came to the hospital for abdominal pain. Patient states her abdominal pain began about 3 days ago. The pain is in her RUQ and RLQ and radiates to her back. She has associated nausea, vomiting, and diarrhea. She has not been able to keep much down other than water for the last 3 days. Acute abdominal pain in right upper quadrant, Biliary colic, Cholelithiasis, Seizures, 05/04/2025 awaiting for HIDA scan Plan discussed with: Patient Date of Service: May 04, 2025 Billing Provider: RENAE VICTORIA DO Common Visit Codes: [id number] INP/OBS CARE(HIGH) RENAE VICTORIA DO May 04, 2025 14:39
[2025-05-05] VITALS (9 sets, daily range): BP systolic 116–159; BP diastolic 86–99; PULSE 79–93; RESP 15–20; TEMP 96.9–98.4; O2SAT 96–100
--- NOTE | 2025-05-05 13:16 | DVHPN2 ---
Progress Note - Dictate Date Seen: May 05, 2025 Medical Necessity Reason Pt with a Central, PICC or Fol: No Subjective Covering for Dr. Marquis. E: still c/o RUQ/epigastric abdominal pain. vital signs Vital Sign Date Time Temp Pulse Resp B/P (MAP) Pulse Ox O2 Delivery O2 Flow Rate FiO2 05/05/25 10:16 86 19 116/88 05/05/25 09:00 97.7 98 97.7 05/04/25 20:00 Room Air* 0 21 Total Intake and Output 05/04/25 05/04/25 05/05/25 15:00 23:00 07:00 Intake Total 0 ml 0 ml Balance 0 ml 0 ml medications Current Medications Medications Dose Ordered Sig/Louise Route Start Time Stop Time Status Last Admin Dose Admin Acetaminophen/ Hydrocodone Bitart 1 tab Q4HP PRN PO 05/03/25 14:30 Ondansetron HCl 4 mg Q4HP PRN IV 05/03/25 14:30 Docusate Sodium 100 mg BIDPRN PRN PO 05/03/25 14:30 Acetaminophen 650 mg Q6HP PRN PO 05/03/25 14:30 Morphine Sulfate 2 mg Q4HPRN PRN IV 05/03/25 14:30 05/05/25 10:16 2 MG Gabapentin 100 mg DAILY PO 05/04/25 10:00 05/04/25 09:51 100 MG Levetiracetam 500 mg BID PO 05/03/25 22:00 05/05/25 10:15 500 MG Multivitamins 1 tab DAILY PO 05/04/25 10:00 Topiramate 25 mg BID PO 05/03/25 22:00 05/05/25 10:15 25 MG Metoclopramide HCl 10 mg Q6HPRN PRN IV 05/03/25 17:00 05/05/25 10:15 10 MG Morphine Sulfate 1 mg ONCE PRN IV 05/03/25 17:00 05/03/25 17:09 1 MG Sodium Chloride 1,000 ml @ 100 mls/hr Q10H IV 05/03/25 17:00 05/05/25 10:15 100 MLS/HR objective GEN: NAD ABD: RUQ/RLQ TTP with min guarding. obese abdomen. laboratory and microbiology Laboratory Tests 05/04/25 05:46 Test 05/04/25 05:46 Range/Units Serum Glucose 72 L 74-106 mg/dL Assessment/Plan A: 1. chronic cholecystitis w/o acute cholecystitis P: 1. patient is still c/o RUQ abd pain even with normal HIDA and labs. Likely chronic cholecystitis/symptomatic cholelithiasis. offered conservative tx vs surgery. patient wished to proceed with surgery. Informed consent: The surgery and its risks including but not limited to infection, bleeding requiring possible blood transfusion with the risk of hepatitis or HIV infection, possible open surgery, possible cystic duct leak or retained common bile duct stone requiring further intervention such as an ERCP, possible perioperative MT or stroke, possibility that the right lower quadrant pain may still persist even after surgery were explained to the patient. All questions were answered to her satisfaction. She expressed verbal understanding and wished to proceed with the surgery. Plan discussed with: Patient GUILLERMO RAMIREZ MD May 05, 2025 13:16
--- NOTE | 2025-05-05 13:43 | DVHPN2 ---
Reviewed: Care Plan, H&P, Labs, Medications, Previous Orders, Radiology Changes from previous H/P or p: No Changes General: Per HPI Eyes: No Pain, No Vision change, No Conjunctivae inflammation, No Eyelid inflammation, No Other, No Redness ENT: No Ear pain, No Ear discharge, No Nose pain, No Nose discharge, No Nose congestion, No Mouth pain, No Mouth swelling, No Throat pain, No Throat swelling, No Other Cardiovascular: No Chest Pain, No Palpitations, No Orthopnea, No Paroxysmal Noc. Dyspnea, No Edema, No Lt Headedness, No Other Respiratory: No Cough, No Dry, No Shortness of breath, No SOB with excertion, No Wheezing, No Hemoptysis, No Pleuritic Pain, No Sputum, No Other Gastrointestinal: Nausea, Vomiting, Abdominal Pain, Diarrhea; No Constipation, No Melena, No Hematochezia, No Other Genitourinary: No Dysuria, No Frequency, No Incontinence, No Hematuria, No Retention, No Other Musculoskeletal: No other, No neck pain, No shoulder pain, No arm pain, No back pain, No hand pain, No leg pain, No foot pain Skin: No Rash, No Lesions, No Jaundice, No Bruising, No Other Objective Vitals Vital Signs Date Time Temp Pulse Resp B/P (MAP) Pulse Ox O2 Delivery O2 Flow Rate FiO2 05/05/25 11:28 97.2 88 18 159/99 (119) 100 97.2 05/04/25 20:00 Room Air* 0 21 Intake/Output Intake and Output 05/05/25 07:00 Intake Total 0 ml Balance 0 ml Intake Oral 0 ml # Voids 6 General Appearance: Alert, Oriented X3, Cooperative Cardiovascular: Normal S1, Normal S2 Abdomen: Soft Neuro: Normal gait, Normal speech Medications Current Medications Medications Dose Ordered Sig/Louise Route Start Time Stop Time Status Last Admin Dose Admin Acetaminophen/ Hydrocodone Bitart 1 tab Q4HP PRN PO 05/03/25 14:30 Ondansetron HCl 4 mg Q4HP PRN IV 05/03/25 14:30 Docusate Sodium 100 mg BIDPRN PRN PO 05/03/25 14:30 Acetaminophen 650 mg Q6HP PRN PO 05/03/25 14:30 Morphine Sulfate 2 mg Q4HPRN PRN IV 05/03/25 14:30 05/05/25 10:16 2 MG Gabapentin 100 mg DAILY PO 05/04/25 10:00 05/04/25 09:51 100 MG Levetiracetam 500 mg BID PO 05/03/25 22:00 05/05/25 10:15 500 MG Multivitamins 1 tab DAILY PO 05/04/25 10:00 Topiramate 25 mg BID PO 05/03/25 22:00 05/05/25 10:15 25 MG Metoclopramide HCl 10 mg Q6HPRN PRN IV 05/03/25 17:00 05/05/25 10:15 10 MG Morphine Sulfate 1 mg ONCE PRN IV 05/03/25 17:00 05/03/25 17:09 1 MG Sodium Chloride 1,000 ml @ 100 mls/hr Q10H IV 05/03/25 17:00 05/05/25 10:15 100 MLS/HR Laboratory Results Laboratory Tests 05/04/25 05:46 Urinalysis Test 05/03/25 08:17 Urine Color Light-orange (Yellow) Urine Clarity Ex.turbid (Clear) Urine pH 5.5 (5.0-9.0) Urine Specific [place] 1.031 (1.001-1.035) Urine Protein 1+ (Negative) H Urine Ketones Trace (Negative) Urine Blood 1+ /uL (Negative) H Urine Nitrite Negative (Negative) Urine Bilirubin Negative (Negative) Urine Urobilinogen Normal mg/dL (Negative) Urine Leukocyte Esterase Negative /uL (Negative) Urine RBC 30 /hpf (0 - 4) Urine Microscopic WBC 40 /HPF (0-5) H Urine Squamous Epithelial Cells Many /hpf (<5) Urine Bacteria Many /hpf (None Seen) H Urine Mucus Many (None Seen) Urine Glucose Normal mg/dL (Normal) Urine Test Negative (Negative) Labs and/or images reviewed: Labs reviewed by me, Image(s) reviewed by me Assessment/Plan Assessment/Plan Fatoumata Cueva Martin is a 34-year-old female with past medical history of asthma, PCOS, and seizures, who came to the hospital for abdominal pain. Patient states her abdominal pain began about 3 days ago. The pain is in her RUQ and RLQ and radiates to her back. She has associated nausea, vomiting, and diarrhea. She has not been able to keep much down other than water for the last 3 days. Acute abdominal pain in right upper quadrant, Biliary colic, Cholelithiasis, Seizures, 05/04/2025 awaiting for HIDA scan 05/05/2025 pt is undergoing surgery today Plan discussed with: Patient Date of Service: May 05, 2025 Billing Provider: RENAE VICTORIA DO Common Visit Codes: [id number] INP/OBS CARE(HIGH) RENAE VICTORIA DO May 05, 2025 13:43
[2025-05-05] MEDS ORDERED: KETOROLAC TROMETH 30 MG/ML 1ML VIAL ONE (14:12)
[2025-05-05] MEDS ORDERED: ROCURONIUM 10MG/ML 10ML VIAL IV ONE (14:12)
[2025-05-05] MEDS ORDERED: ONDANSETRON HCL 4 MG/2 ML VIAL ONE (14:12)
[2025-05-05] MEDS ORDERED: GLYCOPYRROLATE 0.2 MG/ML 1ML VIAL ONE (14:12)
[2025-05-05] MEDS ORDERED: SUGAMMADEX 200mg/2ml Vial (100MG/ML) IV ONE (14:12)
[2025-05-05] MEDS ORDERED: PROPOFOL 10 MG/ML 20 ML IV ONE (14:12)
[2025-05-05] MEDS ORDERED: LIDOCAINE 2% (LOCAL ANESTH.) PF 5ml SDV ONE (14:12)
[2025-05-05] MEDS ORDERED: LIDOCAINE HCL 2% TOP JELLY 5ML TOP ONE (14:13)
[2025-05-05] MEDS ORDERED: KETAMINE 50mg/ML 1ml syringe ONE (14:13)
[2025-05-05] MEDS ORDERED: fentaNYL CITRATE 100 MCG/2 ML VL ONE (14:13)
[2025-05-05] MEDS: ACETAMINOPHEN IV 1000 MG/100ML (10MG/ML) IV ONE (14:15)
[2025-05-05] MEDS: CELECOXIB 100 MG CAP PO ONE (14:15)
[2025-05-05] MEDS: GABAPENTIN 300 MG CAP PO ONE (14:15)
[2025-05-05] MEDS ORDERED: ESMOLOL HCL 10 ML IV ONE (14:34)
[2025-05-05] MEDS: LIDOCAINE W/ EPINEPHRINE 1% 20ML VIAL ONE (15:21)
--- NOTE | 2025-05-05 15:40 | DVHOP2 ---
Operative Report - 2 Report Details Date: 05/05/25 Preop Diagnosis: 1. Cholecystitis Postop Diagnosis: 1. Same Surgeon: Connor Ramirez MD Patient Information Coordinator: None Anesthesiologist: Connor Jenkins CRNA Anesthesia: General, Local Consent: The surgery and its risks including but not limited to infection, bleeding requiring possible blood transfusion with the risk of hepatitis or HIV infection, possible open surgery, possible cystic duct leak or retained common bile duct stone requiring further intervention such as an ERCP, possible perioperative DC or stroke were explained to the patient. All questions were answered to her satisfaction. She expressed verbal understanding and wished to proceed with the surgery. Complications: None Estimated Blood Loss: 30 mL Fluids: 1 L Name of Procedure Performed Laparoscopic cholecystectomy Procedure Details Procedure Details: After induction of general anesthesia, patient's abdomen was prepped and draped in standard surgical fashion. A supraumbilical incision was made and this was taken through the abdominal wall down to the fascia which was opened using electrocautery. Peritoneum was then bluntly divided gaining access to the intra-abdominal cavity. Interrupted 0 Vicryl sutures were placed through the fascial incision and using an open technique, Vimal trocar was introduced and secured using the Vicryl sutures. Abdomen was insufflated to 15 mmHg and camera was inserted. Visual examination of the intestine under the fascial incision appeared normal without injury. Under direct visualization a 5 mm bladeless trocar was placed in the subxiphoid region and two additional 5 mm bladeless trocars were placed in the right upper quadrant all under direct visualization. Examination of the right upper quadrant revealed a distended and slightly edematous gallbladder. Endo needle was used to decompress the gallbladder. Gallbladder was then retracted in the cephalad direction and infundibulum was retracted laterally. Careful blunt dissection was performed to identify the cystic duct which appeared normal in size. This was clipped and divided using Endoclips without complication. Cystic artery was running along next to the cystic duct and this was also clipped and divided using Endoclips without complication. Gallbladder was then removed from the liver bed using electrocautery. There was small amount of bile spillage but no stones were lost. Gallbladder was then removed from the abdominal cavity using an endo pouch bag and sent off the surgical field. Abdomen was then re-insufflated and hemostasis in the liver bed was achieved using electrocautery. Right upper quadrant was then well irrigated until fluid was clear. Trocars were then removed under direct visualization as the abdomen was deflated. Additional interrupted 0 Vicryl sutures were placed through the supraumbilical fascial incision and the sutures were tied down closing off the supraumbilical fascia. Surgical sites were irrigated injected with 25 mL of 1% lidocaine with epinephrine. Skin incisions were closed using cordell. Surgical sites were cleaned and dried and dressings were applied. Sponge, needle, instrument count at the end of the case were reported to be correct by the nursing staff. The patient tolerated procedure well and was awakened, extubated and transferred to recovery in stable condition. Specimen: Gallbladder Condition Stable Disposition Still a Patient CONNOR RAMIREZ MD May 05, 2025 15:40
[2025-05-05] MEDS ORDERED: ONDANSETRON HCL 4 MG/2 ML VIAL IV PRN (15:45)
[2025-05-05] MEDS ORDERED: NALOXONE HCL 0.4 MG/ML VIAL IV PRN (15:45)
[2025-05-05] MEDS ORDERED: fentaNYL CITRATE 100 MCG/2 ML VL IV PRN (15:45)
[2025-05-05] MEDS ORDERED: FLUMAZENIL 0.1 MG/ML INJ 10ML MDV IV PRN (15:45)
[2025-05-05] MEDS ORDERED: hydrALAZINE HCL 20 MG/ML VL IV PRN (15:45)
[2025-05-05] MEDS: HYDROmorphone HCL 2 MG/ML VL/or syr IV PRN (16:02)
[2025-05-05] MEDS: ACETAMINOPHEN IV 100 ML IV ONE (16:03)
[2025-05-05] MEDS: GABAPENTIN 300 MG CAP ONE (16:04)
[2025-05-05] MEDS: CLINDAMYCIN 600MG IV 50 ML IV ONE (16:04)
[2025-05-05] MEDS: CELECOXIB 100 MG CAP ONE (16:05)
[2025-05-05] MEDS: HYDROmorphone HCL 2 MG/ML VL/or syr ONE (16:15)
[2025-05-06] VITALS (7 sets, daily range): BP systolic 118–141; BP diastolic 69–98; PULSE 70–85; RESP 12–20; TEMP 97.8–98.8; O2SAT 98–100
[2025-05-06 07:22] LABS: Hematocrit 39.8 % (36.0-46.0); Hemoglobin 13.6 g/dL (12.2-16.2); Mean Corpuscular Hemoglobin 30.6 pg (28.0-32.0); Mean Corpuscular Volume 89.4 fL (80.0-100.0); Nucleated Red Blood Cells % 0.0 %
[2025-05-06 07:37] LABS: Albumin 4.2 g/dL (3.2-4.8); Anion Gap 10 (5-15); BUN/Creatinine Ratio 10.0 (10.0-20.0); Bilirubin, Total 0.7 mg/dL (0.2-1.0); Calcium 9.8 mg/dL (8.7-10.4); Carbon Dioxide 21 mmol/L (20-31); Chloride 107 mmol/L (98-107); Glucose 80 mg/dL (74-106); Potassium 4.7 mmol/L (3.5-5.1); Sodium 138 mmol/L (136-145); Total Protein 6.6 g/dL (5.7-8.2)
[2025-05-06 07:39] LABS: Alanine Aminotransferase 41 U/L (7-40); Alkaline Phosphatase 44 U/L (46-116); Blood Urea Nitrogen 7 mg/dL (9-23)
[2025-05-06] MEDS: HYDROcodone-ACET 5/325MG TAB PO PRN (09:42)
--- NOTE | 2025-05-06 12:36 | DVHPN2 ---
Reviewed: Care Plan, H&P, Labs, Medications, Previous Orders, Radiology Changes from previous H/P or p: No Changes General: Per HPI Eyes: No Pain, No Vision change, No Conjunctivae inflammation, No Eyelid inflammation, No Other, No Redness ENT: No Ear pain, No Ear discharge, No Nose pain, No Nose discharge, No Nose congestion, No Mouth pain, No Mouth swelling, No Throat pain, No Throat swelling, No Other Cardiovascular: No Chest Pain, No Palpitations, No Orthopnea, No Paroxysmal Noc. Dyspnea, No Edema, No Lt Headedness, No Other Respiratory: No Cough, No Dry, No Shortness of breath, No SOB with excertion, No Wheezing, No Hemoptysis, No Pleuritic Pain, No Sputum, No Other Gastrointestinal: Nausea, Vomiting, Abdominal Pain, Diarrhea; No Constipation, No Melena, No Hematochezia, No Other Genitourinary: No Dysuria, No Frequency, No Incontinence, No Hematuria, No Retention, No Other Musculoskeletal: No other, No neck pain, No shoulder pain, No arm pain, No back pain, No hand pain, No leg pain, No foot pain Skin: No Rash, No Lesions, No Jaundice, No Bruising, No Other Objective Vitals Vital Signs Date Time Temp Pulse Resp B/P (MAP) Pulse Ox O2 Delivery O2 Flow Rate FiO2 05/06/25 09:00 98.2 73 17 135/80 (98) 99 98.2 05/06/25 08:00 Room Air* 0 21 Intake/Output Intake and Output 05/06/25 07:00 Intake Total 400 ml Output Total 100 ml Balance 300 ml Intake Oral 200 ml IV Total 200 ml Output Urine Total 100 ml # Voids 7 General Appearance: Alert, Oriented X3, Cooperative Cardiovascular: Normal S1, Normal S2 Abdomen: Soft Neuro: Normal gait, Normal speech Medications Current Medications Medications Dose Ordered Sig/Louise Route Start Time Stop Time Status Last Admin Dose Admin Acetaminophen/ Hydrocodone Bitart 1 tab Q4HP PRN PO 05/03/25 14:30 05/06/25 09:42 1 TAB Ondansetron HCl 4 mg Q4HP PRN IV 05/03/25 14:30 Docusate Sodium 100 mg BIDPRN PRN PO 05/03/25 14:30 Acetaminophen 650 mg Q6HP PRN PO 05/03/25 14:30 Morphine Sulfate 2 mg Q4HPRN PRN IV 05/03/25 14:30 05/06/25 05:54 2 MG Gabapentin 100 mg DAILY PO 05/04/25 10:00 05/06/25 09:42 100 MG Levetiracetam 500 mg BID PO 05/03/25 22:00 05/06/25 09:42 500 MG Multivitamins 1 tab DAILY PO 05/04/25 10:00 05/06/25 09:42 1 TAB Topiramate 25 mg BID PO 05/03/25 22:00 05/06/25 09:42 25 MG Metoclopramide HCl 10 mg Q6HPRN PRN IV 05/03/25 17:00 05/05/25 21:31 10 MG Sodium Chloride 1,000 ml @ 100 mls/hr Q10H IV 05/03/25 17:00 05/06/25 05:00 100 MLS/HR Laboratory Results Laboratory Tests 05/06/25 05:09 Chemistry Test 05/06/25 05:09 Albumin 4.2 g/dL (3.2-4.8) Calcium Level 9.8 mg/dL (8.7-10.4) Total Protein 6.6 g/dL (5.7-8.2) LFT Test 05/06/25 05:09 Alanine Aminotransferase (ALT) 41 U/L (7-40) H Alkaline Phosphatase 44 U/L (46-116) L Aspartate Amino Transferase (AST) 35 U/L (13-40) Total Bilirubin 0.7 mg/dL (0.2-1.0) Urinalysis Test 05/03/25 08:17 Urine Color Light-orange (Yellow) Urine Clarity Ex.turbid (Clear) Urine pH 5.5 (5.0-9.0) Urine Specific [place] 1.031 (1.001-1.035) Urine Protein 1+ (Negative) H Urine Ketones Trace (Negative) Urine Blood 1+ /uL (Negative) H Urine Nitrite Negative (Negative) Urine Bilirubin Negative (Negative) Urine Urobilinogen Normal mg/dL (Negative) Urine Leukocyte Esterase Negative /uL (Negative) Urine RBC 30 /hpf (0 - 4) Urine Microscopic WBC 40 /HPF (0-5) H Urine Squamous Epithelial Cells Many /hpf (<5) Urine Bacteria Many /hpf (None Seen) H Urine Mucus Many (None Seen) Urine Glucose Normal mg/dL (Normal) Urine Test Negative (Negative) Labs and/or images reviewed: Labs reviewed by me, Image(s) reviewed by me Assessment/Plan Assessment/Plan HammadAubreyFatoumatacarina Salazar is a 34-year-old female with past medical history of asthma, PCOS, and seizures, who came to the hospital for abdominal pain. Patient states her abdominal pain began about 3 days ago. The pain is in her RUQ and RLQ and radiates to her back. She has associated nausea, vomiting, and diarrhea. She has not been able to keep much down other than water for the last 3 days. Acute abdominal pain in right upper quadrant, Biliary colic, Cholelithiasis, Seizures, 05/04/2025 awaiting for HIDA scan 05/05/2025 pt is undergoing surgery today 05/06/2025 doing well today after surgery advancing diet per surgery Plan discussed with: Patient Date of Service: May 06, 2025 Billing Provider: RENAE VICTORIA DO Common Visit Codes: [id number] INP/OBS CARE(HIGH) RENAE VICTORIA DO May 06, 2025 12:36
--- NOTE | 2025-05-06 14:14 | DVHPN2 ---
Progress Note - Dictate Date Seen: May 06, 2025 Medical Necessity Reason Pt with a Central, PICC or Fol: No Subjective E: no major events o/n. no complaints. joaquim po. vital signs Vital Sign Date Time Temp Pulse Resp B/P (MAP) Pulse Ox O2 Delivery O2 Flow Rate FiO2 05/06/25 12:48 98.8 79 17 118/69 (85) 100 98.8 05/06/25 08:00 Room Air* 0 21 Total Intake and Output 05/05/25 05/05/25 05/06/25 15:00 23:00 07:00 Intake Total 200 ml 0 ml 200 ml Output Total 100 ml Balance 200 ml -100 ml 200 ml medications Current Medications Medications Dose Ordered Sig/Louise Route Start Time Stop Time Status Last Admin Dose Admin Acetaminophen/ Hydrocodone Bitart 1 tab Q4HP PRN PO 05/03/25 14:30 05/06/25 09:42 1 TAB Ondansetron HCl 4 mg Q4HP PRN IV 05/03/25 14:30 Docusate Sodium 100 mg BIDPRN PRN PO 05/03/25 14:30 Acetaminophen 650 mg Q6HP PRN PO 05/03/25 14:30 Morphine Sulfate 2 mg Q4HPRN PRN IV 05/03/25 14:30 05/06/25 05:54 2 MG Gabapentin 100 mg DAILY PO 05/04/25 10:00 05/06/25 09:42 100 MG Levetiracetam 500 mg BID PO 05/03/25 22:00 05/06/25 09:42 500 MG Multivitamins 1 tab DAILY PO 05/04/25 10:00 05/06/25 09:42 1 TAB Topiramate 25 mg BID PO 05/03/25 22:00 05/06/25 09:42 25 MG Metoclopramide HCl 10 mg Q6HPRN PRN IV 05/03/25 17:00 05/05/25 21:31 10 MG Sodium Chloride 1,000 ml @ 100 mls/hr Q10H IV 05/03/25 17:00 05/06/25 05:00 100 MLS/HR objective GEN: NAD ABD: surgical dressings clean and dry. laboratory and microbiology Laboratory Tests 05/06/25 05:09 Test 05/06/25 05:09 Range/Units Serum Glucose 80 74-106 mg/dL Assessment/Plan A: 1. s/p lap cholecystectomy doing well. P: 1. stable from surgery POV for DC. 2. remove bandages tomorrow and shower. ok to get incisions wet tomorrow. 3. f/u in clinic next week. call [phone] for f/u appt. Dietary Evaluation Review Recommendations by RD: Dietary education by RD Comments: low fat diet after gallbaldder surgery Weight management upon D/C Expected Outcomes/Goals: free from GI symptoms gradual wt loss Plan discussed with: Patient GUILLERMO RAMIREZ MD May 06, 2025 14:14
[2025-05-07] VITALS (7 sets, daily range): BP systolic 111–138; BP diastolic 71–89; PULSE 69–99; RESP 12–19; TEMP 97.7–98.8; O2SAT 95–100
--- NOTE | 2025-05-07 10:05 | DVHPN2 ---
Reviewed: Care Plan, H&P, Labs, Medications, Previous Orders, Radiology Changes from previous H/P or p: No Changes General: Per HPI Eyes: No Pain, No Vision change, No Conjunctivae inflammation, No Eyelid inflammation, No Other, No Redness ENT: No Ear pain, No Ear discharge, No Nose pain, No Nose discharge, No Nose congestion, No Mouth pain, No Mouth swelling, No Throat pain, No Throat swelling, No Other Cardiovascular: No Chest Pain, No Palpitations, No Orthopnea, No Paroxysmal Noc. Dyspnea, No Edema, No Lt Headedness, No Other Respiratory: No Cough, No Dry, No Shortness of breath, No SOB with excertion, No Wheezing, No Hemoptysis, No Pleuritic Pain, No Sputum, No Other Gastrointestinal: Nausea, Vomiting, Abdominal Pain, Diarrhea; No Constipation, No Melena, No Hematochezia, No Other Genitourinary: No Dysuria, No Frequency, No Incontinence, No Hematuria, No Retention, No Other Musculoskeletal: No other, No neck pain, No shoulder pain, No arm pain, No back pain, No hand pain, No leg pain, No foot pain Skin: No Rash, No Lesions, No Jaundice, No Bruising, No Other Objective Vitals Vital Signs Date Time Temp Pulse Resp B/P (MAP) Pulse Ox O2 Delivery O2 Flow Rate FiO2 05/07/25 09:34 98.3 79 18 126/89 (101) 95 98.3 05/06/25 20:00 Room Air* 0 21 Intake/Output Intake and Output 05/07/25 07:00 Intake Total 1900 ml Balance 1900 ml Intake Oral 800 ml IV Total 1100 ml # Voids 7 # Bowel Movements 1 General Appearance: Alert, Oriented X3, Cooperative Cardiovascular: Normal S1, Normal S2 Abdomen: Soft Neuro: Normal gait, Normal speech Medications Current Medications Medications Dose Ordered Sig/Louise Route Start Time Stop Time Status Last Admin Dose Admin Acetaminophen/ Hydrocodone Bitart 1 tab Q4HP PRN PO 05/03/25 14:30 05/07/25 00:50 1 TAB Ondansetron HCl 4 mg Q4HP PRN IV 05/03/25 14:30 Docusate Sodium 100 mg BIDPRN PRN PO 05/03/25 14:30 Acetaminophen 650 mg Q6HP PRN PO 05/03/25 14:30 Morphine Sulfate 2 mg Q4HPRN PRN IV 05/03/25 14:30 05/06/25 05:54 2 MG Gabapentin 100 mg DAILY PO 05/04/25 10:00 05/06/25 09:42 100 MG Levetiracetam 500 mg BID PO 05/03/25 22:00 05/06/25 21:36 500 MG Multivitamins 1 tab DAILY PO 05/04/25 10:00 05/06/25 09:42 1 TAB Topiramate 25 mg BID PO 05/03/25 22:00 05/06/25 21:36 25 MG Metoclopramide HCl 10 mg Q6HPRN PRN IV 05/03/25 17:00 05/05/25 21:31 10 MG Sodium Chloride 1,000 ml @ 100 mls/hr Q10H IV 05/03/25 17:00 05/06/25 21:38 100 MLS/HR Laboratory Results Laboratory Tests 05/06/25 05:09 Urinalysis Test 05/03/25 08:17 Urine Color Light-orange (Yellow) Urine Clarity Ex.turbid (Clear) Urine pH 5.5 (5.0-9.0) Urine Specific [place] 1.031 (1.001-1.035) Urine Protein 1+ (Negative) H Urine Ketones Trace (Negative) Urine Blood 1+ /uL (Negative) H Urine Nitrite Negative (Negative) Urine Bilirubin Negative (Negative) Urine Urobilinogen Normal mg/dL (Negative) Urine Leukocyte Esterase Negative /uL (Negative) Urine RBC 30 /hpf (0 - 4) Urine Microscopic WBC 40 /HPF (0-5) H Urine Squamous Epithelial Cells Many /hpf (<5) Urine Bacteria Many /hpf (None Seen) H Urine Mucus Many (None Seen) Urine Glucose Normal mg/dL (Normal) Urine Test Negative (Negative) Labs and/or images reviewed: Labs reviewed by me, Image(s) reviewed by me Assessment/Plan Assessment/Plan Fatoumata Cueva Martin is a 34-year-old female with past medical history of asthma, PCOS, and seizures, who came to the hospital for abdominal pain. Patient states her abdominal pain began about 3 days ago. The pain is in her RUQ and RLQ and radiates to her back. She has associated nausea, vomiting, and diarrhea. She has not been able to keep much down other than water for the last 3 days. Acute abdominal pain in right upper quadrant, Biliary colic, Cholelithiasis, Seizures, 05/04/2025 awaiting for HIDA scan 05/05/2025 pt is undergoing surgery today 05/06/2025 doing well today after surgery advancing diet per surgery 05/07/2025 pt seen at bedside still has some nausea but tolerating food okay Plan discussed with: Patient Date of Service: May 07, 2025 Billing Provider: RENAE VICTORIA DO Common Visit Codes: [id number] INP/OBS CARE(HIGH) RENAE VICTORIA DO May 07, 2025 10:05
[2025-05-07] MEDS: OXYCODONE W/ ACETAMINOPHEN 5/325MG TABLET PO PRN (11:08)
[2025-05-07] MEDS: ONDANSETRON HCL 4 MG/2 ML VIAL IV PRN (11:13)
[2025-05-08 01:00] VITALS: BP 112/76; PULSE 80; RESP 16; TEMP 98; O2SAT 99
[2025-05-08 05:00] VITALS: BP 119/79; PULSE 84; RESP 16; TEMP 98.1; O2SAT 99
[2025-05-08 09:00] VITALS: BP 138/94; PULSE 85; RESP 18; TEMP 98.2; O2SAT 98
--- NOTE | 2025-05-08 10:54 | DVHPN2 ---
Subjective Tolerating well liquid diet; ordered regular diet; passing gas and stool; will be discharged after tolerating regular diet Reviewed: Care Plan, H&P, Labs, Medications, Previous Orders, Radiology, Other (Consultation) Changes from previous H/P or p: No Changes Objective Vitals Vital Signs Date Time Temp Pulse Resp B/P (MAP) Pulse Ox O2 Delivery O2 Flow Rate FiO2 05/08/25 09:00 98.2 85 18 138/94 (109) 98 98.2 05/08/25 07:54 Room Air* 0 21 Intake/Output Intake and Output 05/08/25 07:00 Intake Total 2680 ml Balance 2680 ml Intake Oral 1680 ml IV Total 1000 ml # Voids 5 General Appearance: Alert, Oriented X3, Cooperative, No acute distress HEENT: Atraumatic Lungs: Clear to auscultation, Normal air movement Cardiovascular: Regular rate, Normal S1, Normal S2 Abdomen: Normal bowel sounds, Soft, Other (Healing laparoscopic cholecystectomy surgical wounds with no signs of infection; very mild tenderness to touch) Extremities: No edema Neuro: Normal speech, Cranial nerves 3-12 NL Psych/Mental Status: Mental status NL, Mood NL Medications Current Medications Medications Dose Ordered Sig/Louise Route Start Time Stop Time Status Last Admin Dose Admin Ondansetron HCl 4 mg Q4HP PRN IV 05/03/25 14:30 05/07/25 11:13 4 MG Docusate Sodium 100 mg BIDPRN PRN PO 05/03/25 14:30 Acetaminophen 650 mg Q6HP PRN PO 05/03/25 14:30 Morphine Sulfate 2 mg Q4HPRN PRN IV 05/03/25 14:30 05/06/25 05:54 2 MG Gabapentin 100 mg DAILY PO 05/04/25 10:00 05/08/25 08:56 100 MG Levetiracetam 500 mg BID PO 05/03/25 22:00 05/08/25 08:55 500 MG Multivitamins 1 tab DAILY PO 05/04/25 10:00 05/06/25 09:42 1 TAB Topiramate 25 mg BID PO 05/03/25 22:00 05/08/25 08:56 25 MG Metoclopramide HCl 10 mg Q6HPRN PRN IV 05/03/25 17:00 05/05/25 21:31 10 MG Sodium Chloride 1,000 ml @ 100 mls/hr Q10H IV 05/03/25 17:00 05/08/25 04:01 100 MLS/HR Oxycodone/ Acetaminophen 2 tab Q4HP PRN PO 05/07/25 11:00 05/08/25 08:57 2 TAB Laboratory Results Laboratory Tests 05/06/25 05:09 Urinalysis Test 05/03/25 08:17 Urine Color Light-orange (Yellow) Urine Clarity Ex.turbid (Clear) Urine pH 5.5 (5.0-9.0) Urine Specific [place] 1.031 (1.001-1.035) Urine Protein 1+ (Negative) H Urine Ketones Trace (Negative) Urine Blood 1+ /uL (Negative) H Urine Nitrite Negative (Negative) Urine Bilirubin Negative (Negative) Urine Urobilinogen Normal mg/dL (Negative) Urine Leukocyte Esterase Negative /uL (Negative) Urine RBC 30 /hpf (0 - 4) Urine Microscopic WBC 40 /HPF (0-5) H Urine Squamous Epithelial Cells Many /hpf (<5) Urine Bacteria Many /hpf (None Seen) H Urine Mucus Many (None Seen) Urine Glucose Normal mg/dL (Normal) Urine Test Negative (Negative) Labs and/or images reviewed: Labs reviewed by me, Image(s) reviewed by me Assessment/Plan Assessment/Plan Covering: Acute abdominal pain due to acute cholecystitis status post laparoscopic cholecystectomy on May 05, 2025 Seizures disorder Morbid obesity Started on regular diet; will be discharged if tolerating regular diet Finished five days of IV antibiotics; so no antibiotics upon discharge To follow up with surgery within two weeks after discharge To follow up with discharge clinic Dr. Acharya next Thursday Continue home medications including antiseizure medications Counseled on marijuana use cessation for 16 minutes Was on seizure precautions during hospitalization Counseled on importance of adopting healthy lifestyle with diet and exercise in order to lose weight Goals of care discussed with the patient for 20 minutes; full code Late Entry. This medical document was created using an electronic medical record system with computerized dictation system. Although this document has been carefully reviewed, there might still be some phonetic and typographical errors. These areas are purely typographical due to imperfections of the software programs, and do not reflect any compromise in the patient's medical care. Plan discussed with: Patient, Other (Nurse) Date of Service: May 08, 2025 Billing Provider: MICHAEL ACHARYA MD Common Visit Codes: 59786-[id number] INP/OBS CARE(MOD) Secondary Visit Codes: 33885-GHSMM CHNG SMOKING >10MIN (Counseled marijuana use cessation for 16 minute), [id number] CARE PLAN 30 MINUTES (20 minutes) MICHAEL ACHARYA MD May 08, 2025 10:54
[2025-05-08 13:00] VITALS: BP 152/101; PULSE 75; RESP 19; TEMP 98.5; O2SAT 99
[2025-05-08] MEDS: ACETAMINOPHEN 325 MG TAB PO PRN (13:23)
[2025-05-08 13:31] LABS: Hematocrit 37.9 % (36.0-46.0); Hemoglobin 13.1 g/dL (12.2-16.2); Mean Corpuscular Hemoglobin 31.0 pg (28.0-32.0); Mean Corpuscular Volume 89.8 fL (80.0-100.0); Nucleated Red Blood Cells % 0.1 %
[2025-05-08 13:53] LABS: Albumin 4.1 g/dL (3.2-4.8); Alkaline Phosphatase 47 U/L (46-116); Anion Gap 9 (5-15); BUN/Creatinine Ratio 9.7 (10.0-20.0); Calcium 9.5 mg/dL (8.7-10.4); Carbon Dioxide 24 mmol/L (20-31); Potassium 3.7 mmol/L (3.5-5.1); Sodium 140 mmol/L (136-145); Total Protein 6.5 g/dL (5.7-8.2)
[2025-05-08 13:54] LABS: Bilirubin, Total 0.9 mg/dL (0.2-1.0)
[2025-05-08 13:55] LABS: Alanine Aminotransferase 57 U/L (7-40); Blood Urea Nitrogen 6 mg/dL (9-23); Chloride 107 mmol/L (98-107); Glucose 70 mg/dL (74-106)
--- NOTE | 2025-05-08 16:02 | DVHDS2 ---
Discharge Summary Date of Admission May 03, 2025 at 14:20 Date of Discharge: May 08, 2025 Admitting Diagnosis Acute abdominal pain Wounds: Healing laparoscopic cholecystectomy surgical wounds with no signs of infection/bleeding Labs/Diagnostic Data: Laboratory Results Test 05/08/25 13:17 05/03/25 14:46 05/03/25 08:17 05/03/25 07:22 White Blood Count 4.6 10^3/uL (4.4-10.8) Red Blood Count 4.22 10^6/uL (4.0-5.20) Hemoglobin 13.1 g/dL (12.2-16.2) Hematocrit 37.9 % (36.0-46.0) Mean Corpuscular Volume 89.8 fL (80.0-100.0) Mean Corpuscular Hemoglobin 31.0 pg (28.0-32.0) Mean Corpuscular Hemoglobin Concent 34.5 g/dL (32.0-36.0) Red Cell Distribution Width 13.2 % (11.8-14.3) Platelet Count 198 10^3/uL (140-450) Mean Platelet Volume 7.9 fL (6.9-10.8) Neutrophils (%) (Auto) 61.9 % (37.0-80.0) Lymphocytes (%) (Auto) 30.1 % (10.0-50.0) Monocytes (%) (Auto) 7.3 % (0.0-12.0) Eosinophils (%) (Auto) 0.3 % (0.0-7.0) Basophils (%) (Auto) 0.4 % (0.0-2.0) Neutrophils # (Auto) 2.9 10 ^3/uL (1.6-8.6) Lymphocytes # (Auto) 1.4 10 ^3/uL (0.4-5.4) Monocytes # (Auto) 0.3 10 ^3/uL (0-1.3) Eosinophils # (Auto) 0 10 ^3/uL (0-0.8) Basophils # (Auto) 0 10 ^3/uL (0-0.2) Nucleated Red Blood Cells 0.1 % Sodium Level 140 mmol/L (136-145) Potassium Level 3.7 mmol/L (3.5-5.1) Chloride Level 107 mmol/L (98-107) Carbon Dioxide Level 24 mmol/L (20-31) Anion Gap 9 (5-15) Blood Urea Nitrogen 6 mg/dL (9-23) Creatinine 0.62 mg/dL (0.550-1.02) Glomerular Filtration Rate Calc 120 mL/min (>90) BUN/Creatinine Ratio 9.7 (10.0-20.0) Serum Glucose 70 mg/dL (74-106) Calcium Level 9.5 mg/dL (8.7-10.4) Total Bilirubin 0.9 mg/dL (0.2-1.0) Aspartate Amino Transferase (AST) 46 U/L (13-40) Alanine Aminotransferase (ALT) 57 U/L (7-40) Alkaline Phosphatase 47 U/L (46-116) Total Protein 6.5 g/dL (5.7-8.2) Albumin 4.1 g/dL (3.2-4.8) Prothrombin Time 10.8 sec (9.3-11.8) Prothrombin Time INR 1.02 (0.9-1.15) Activated Partial Thromboplast Time 23.6 SEC (24.5-34.5) Urine Color Light-orange (Yellow) Urine Clarity Ex.turbid (Clear) Urine pH 5.5 (5.0-9.0) Urine Specific [place] 1.031 (1.001-1.035) Urine Protein 1+ (Negative) Urine Ketones Trace (Negative) Urine Blood 1+ /uL (Negative) Urine Nitrite Negative (Negative) Urine Bilirubin Negative (Negative) Urine Urobilinogen Normal mg/dL (Negative) Urine Leukocyte Esterase Negative /uL (Negative) Urine RBC 30 /hpf (0 - 4) Urine Microscopic WBC 40 /HPF (0-5) Urine Squamous Epithelial Cells Many /hpf (<5) Urine Bacteria Many /hpf (None Seen) Urine Mucus Many (None Seen) Urine Glucose Normal mg/dL (Normal) Urine Test Negative (Negative) Urine Opiates Screen Neg (NEGATIVE) Urine Fentanyl Screen Neg (NEGATIVE) Urine Barbiturates Screen Neg (NEGATIVE) Urine Phencyclidine Screen Neg (NEGATIVE) Urine Amphetamines Screen Neg (NEGATIVE) Urine Benzodiazepines Screen Neg (NEGATIVE) Urine Cocaine Screen Neg (NEGATIVE) Urine Cannabinoids Screen Pos (NEGATIVE) Lactic Acid Level 1.3 mmol/L (0.4-2.0) Lipase 28 U/L (12-53) Beta HCG, Quantitative 0.9 mIU/mL (1.5-4.2) Other Laboratory Tests 05/08/25 13:17 Brief Hx & Hospital Course: Covering: A 34-year-old female patient; with past medical history of seizures disorder; who presented to emergency department with acute abdominal pain. Acute abdominal pain due to acute cholecystitis status post laparoscopic cholecystectomy on May 05, 2025 Seizures disorder Morbid obesity Tolerated well regular diet; so was discharged Finished five days of IV antibiotics; so no antibiotics upon discharge To follow up with surgery within two weeks after discharge To follow up with discharge clinic Dr. Acharya next Thursday Continue home medications including antiseizure medications Counseled on marijuana use cessation for 16 minutes Was on seizure precautions during hospitalization Counseled on importance of adopting healthy lifestyle with diet and exercise in order to lose weight Physical examination as documented in the progress note of the day of discharge Late Entry. This medical document was created using an electronic medical record system with computerized dictation system. Although this document has been carefully reviewed, there might still be some phonetic and typographical errors. These areas are purely typographical due to imperfections of the software programs, and do not reflect any compromise in the patient's medical care. Consults/Reason for consult Surgery for acute abdominal pain Operations or Procedures Laparoscopic cholecystectomy on May 05, 2025 Condition at Discharge: Stable Final Diagnosis/Problems List Acute cholecystitis status post lap cholecystectomy Rest of diagnoses as above Discharge Disposition: Home Discharge Instruct/Medications Diet: Regular Activity: No Restrictions, As Tolerated Follow Up/Referral: Dr. Acharya/Dr. Hartman on Thursday May 15, 2025 at 8:00 a.m. Medications: Continue home medications Scheduled Gabapentin (Gabapentin), 1 CAP PO TID Levetiracetam (Keppra), 1 TAB PO BID, (Reported) Multiple Vitamin (Multivitamins), 1 TAB PO DAILY, (Reported) Topiramate (Topiramate), 1 TAB PO BID, (Reported) Miscellaneous Medications Albuterol Sulfate (Ventolin Mdi), 90 MCG IN, (Reported) Cholecalciferol (Vitamin D3), 2,000 UNIT OR, (Reported) Discontinued Medications Acetaminophen (Tylenol Extra Strength Fo), 650 MG PO TID Azithromycin (Azithromycin), 1 TAB PO DAILY Famotidine (Pepcid AC), 20 MG PO DAILY PRN Meclizine HCl (Antivert), 25 MG PO DAILY PRN Ondansetron HCl (Ondansetron), 4 MG PO Q8HP PRN Ondansetron Odt 4MG Tab (Zofran Po), 4 MG PO BIDPRN PRN Discharge Statement: "Patient was advised to return to the ER or call 911 if any headaches, dizziness, shortness of breath, chest pain, abdominal pain, bleeding, fevers, or worsening of medical condition. Patient was counseled about treatment plan, medications, possible side effects, patientverbalized understanding. All questions were answered to the best of my ability. This discharge took greater then 30 minutes in planning, reviewing documentation, counseling the patient, and discussing with other team members." ASSESSMENT ASSESSMENT Assessment Date of Service: May 08, 2025 Billing Provider: MICHAEL ACHARYA MD Common Visit Codes: 83190-CRV/OBS DISCH DAY >30min MICHAEL ACHARYA MD May 08, 2025 16:02
[2025-05-08 17:05] VITALS: BP 153/96; PULSE 75; RESP 19; TEMP 98.5; O2SAT 99
== END 2025-05-08 18:50 | disposition home or self-care (01) | DRG 263 ==
LOC: ER 06:45 → OVERFLOW 14:20 → EAST 15:27
PROVIDERS: ADMIT Internal Medicine; ATTEND Internal Medicine
PROC: 0FT44ZZ Resection of Gallbladder, Percutaneous Endoscopic Approach (ICD-10-PCS; principal; 2025-05-05 14:20)
DX: K80.66 Calculus of gallbladder and bile duct with acute and chronic cholecystitis without obstruction (principal); E28.2 Polycystic ovarian syndrome; G40.909 Epilepsy, unspecified, not intractable, without status epilepticus; E66.01 Morbid (severe) obesity due to excess calories; J45.909 Unspecified asthma, uncomplicated; Z83.3 Family history of diabetes mellitus; Z88.0 Allergy status to penicillin; Z88.6 Allergy status to analgesic agent; Z91.018 Allergy to other foods; Z68.41 Body mass index [BMI] 40.0-44.9, adult; Z79.899 Other long term (current) drug therapy; Z79.2 Long term (current) use of antibiotics
CPT/HCPCS: 36415; 71045; 74176; 76705; 78226; 80053; 80307; 81001; 81025; 83605; 83690; 84702; 85025; 85610; 85730; 96361; 96374; G0378; J0131; J1100; J1885; J2003; J2405; J2704; J3490